=== PATIENT | male | born 1970 | race Caucasian/White ===

== ENCOUNTER 2020-08-22 07:22 | Inpatient (IN) ==
[2020-08-22] MEDS ORDERED: SODIUM CHLORIDE 0.9% 1000ML 1,000 ML IV STA (07:46)
[2020-08-22] MEDS ORDERED: ACETAMINOPHEN 500 MG TAB PO STA (07:46)
--- NOTE | 2020-08-22 08:17 | Emergency Department Note ---
Impression & Plan Pneumonia due to COVID-19 virus, Hypoxia ED Provider Note NAME: ALEYDA ARRIAGA AGE: 49 SEX: M : 1970 ARRIVES VIA: Walk-In INFORMANT: Patient, ED PROVIDER(S): Norberto Nguyen DO CHIEF COMPLAINT: Fever HPI: The patient is a 49-year-old male who presented to the emergency department for an evaluation of fever and cough. The patient was experiencing Covid-like symptoms since August 13. He was tested this week in an outside facility and was positive for COVID-19. His symptoms continue to worsen. The patient has been noticing chest pain as well as cough. He has had intermittent episodes of fever for which he has been taking [id number] medication for. He has been trying to eat and drink as much as possible but because of his loss of taste he is not hungry and has had decreased p.o. intake. He does have lower extremity swelling which is not new for him. He denies any having any abdominal pain nausea vomiting or diarrhea. He states his symptoms continue to worsen so he presented to the emergency department today for further evaluation. The patient did not take any medication for fever this morning. The patient states he has worsening symptoms with any ambulation. The patient also has shortness of breath when he lays flat. ROS: See above HPI for pertinent positives & negatives. A total of 10 systems reviewed and were otherwise negative. PAST MEDICAL HISTORY: See Below PAST SURGICAL HISTORY: See Below FAMILY HISTORY: See Below SOCIAL HISTORY: See Below HOME MEDICATIONS: See Below ALLERGIES: See Below VITALS: See Below PHYSICAL EXAMINATION: GENERAL: Patient is awake alert in no acute distress patient is resting comfortably and showing no signs of anxiety EYES: The conjunctivae are clear. The pupils are round and reactive. EARS, NOSE, MOUTH AND THROAT: The nose is without any evidence of any deformity. NECK: The neck is nontender and supple. RESPIRATORY: Diminished breath sounds are noted throughout. There were rales at the right base. There is no tachypnea or conversational dyspnea. CARDIOVASCULAR: Regular rate and rhythm noted there no murmurs rubs or gallops normal S1 normal S2. GASTROINTESTINAL: The abdomen is soft. Abdomen is nontender. MUSCULOSKELETAL/EXTREMITIES: There is no evidence of gross deformity full range of motion is noted in the hips and shoulders. SKIN: Bilateral pedal edema was noted. Left greater than right. NEUROLOGIC: Patient is awake alert and oriented x3 strength is symmetric patellar reflexes are 2+ bilaterally MEDICAL DECISION MAKING: The patient is a 49-year-old male who presented to the emergency department for an evaluation of difficulty breathing. The patient was recently diagnosed with COVID-19. He had many the symptoms of COVID-19. He was tested and found out he was positive recently. He is approximately 9 days into his symptoms. The patient started having worsening symptoms over the last 24 hours. He presented to the emergency department for evaluation of worsening breathing. The patient's history and physical exam appear to be consistent with significant COVID-19. His radiographic studies appear to be consistent with pneumonia. He was hypoxic with any exertion. Given the patient's radiographic findings he was given a dose of Decadron in the emergency department. He was reevaluated multiple times. I discussed the patient's laboratory and radiographic studies with him. I also discussed his case with the [facility]-call [facility] They have agreed to evaluate the patient in the emergency department for further management and disposition. Triage Nursing notes reviewed. Prior medical records reviewed Vital Signs: reviewed and remarkable for elevated blood pressure and hypoxia. Differential diagnosis: Viral syndrome, otitis, pharyngitis, pneumonia, influenza, meningitis, urinary tract infection, sepsis, bacteremia, as well as other pathologies. ER treatment provided: See below Diagnostics interpreted by me: ECG: EKG was obtained in the emergency department. My interpretation is normal sinus rhythm at 88 bpm. There was no ectopy. There is no acute ST segment abnormalities noted. No previous tracing was available for comparison. Cardiac Monitoring: An order was placed for continuous cardiac monitoring. The monitor shows a rate of 85 bpm with sinus rhythm. Laboratory studies: As stated above and show below. Imaging studies: See below Consultation(s): [id number]: I discussed this case with Dr. Yu who is on-call for the [facility]. She will evaluate the patient in the emergency department. Past Med/Surg History Medical History Anxiety Edema GERD (gastroesophageal reflux disease) Hyperlipidemia Social History Smoking Status: Never smoker Hx Alcohol Use: No Hx Substance Use: No Preferred Language: [place] Communication Ability: Effective Lead Engineer Required: No Beliefs That Will Affect Care: None Current Living Situation: Family Other Information That Helps Us Care for You: No Feels Safe at Home: Yes Safety Concerns: Feels Safe At This Time Assistive Devices: None Allergies Allergies Allergy/AdvReac Type Severity Reaction Status Date / Time No Known Allergies Allergy Unknown Verified 08/22/20 08:54 Home Meds Home Medications Medication Instructions Recorded Confirmed atorvastatin 20 mg PO QAM 04/12/20 08/22/20 citalopram 40 mg PO QAM 04/12/20 08/22/20 furosemide 20 mg PO QAM 04/12/20 08/22/20 lisinopril 10 mg PO QAM 04/12/20 08/22/20 omeprazole 20 mg PO QAM 04/12/20 08/22/20 potassium chloride 10 meq PO BID 04/12/20 08/22/20 finasteride 5 mg PO DAILY 08/22/20 08/22/20 Results & Data (ED) Vital Signs Vital Signs - 24 hr 08/22/20 07:27 08/22/20 07:52 08/22/20 08:27 Temperature 38.0 C H Temperature Source Temporal Artery Scan Pulse Rate 106 H 88 89 Pulse Rate from SpO2 Sensor 89 Pulse Rhythm Regular Respiratory Rate 18 23 26 H Respiratory Effort / Characteristics Non-Labored Spontaneous Respiratory Depth Normal Respiratory Pattern Regular Blood Pressure 129/83 155/87 H Blood Pressure Mean 98 109 Blood Pressure Position Sitting Pulse Oximetry 97 93 88 L Oxygen Delivery Method Room Air Room Air Sepsis Recent Fever Within 48 Hours No Sepsis New/Unexplained Change in Mental Status No Sepsis Action Taken by Nursing No Action Required 08/22/20 08:30 08/22/20 09:00 08/22/20 09:30 Temperature 39.6 C H Temperature Source Pulse Rate 96 H 81 82 Pulse Rate from SpO2 Sensor 97 H 81 82 Pulse Rhythm Respiratory Rate 16 28 H 18 Respiratory Effort / Characteristics Respiratory Depth Respiratory Pattern Blood Pressure 161/84 H 153/87 H 158/91 H Blood Pressure Mean 109 109 113 Blood Pressure Position Pulse Oximetry 93 90 94 Oxygen Delivery Method Sepsis Recent Fever Within 48 Hours Sepsis New/Unexplained Change in Mental Status Sepsis Action Taken by Intermediate Medications Current Medication List: was personally reviewed by me Laboratory Data Attestation: I reviewed the patient's lab results. Result diagrams: 08/22/20 08:18 08/22/20 08:23 Lab Results 08/22/20 08/22/20 08/22/20 Range/Units 08:00 08:00 08:18 WBC 3.99 L (4.8-10.8) K/uL RBC 5.07 (4.7-6.1) M/uL Hgb 14.7 (14.0-18.0) g/dL Hct 41.9 L (42-52) % MCV 82.6 (80-100) fL MCH 29.0 (25-34) pg MCHC 35.1 (32-36) g/dL RDW Std Deviation 40.0 (36.4-46.3) fL RDW Coeff of John 13.3 (11.5-14.5) % Plt Count 176 (130-400) K/uL MPV 9.8 (7.4-10.4) fL Immature Gran % (Auto) 0.3 % Neut % (Auto) 75.9 % Lymph % (Auto) 12.3 % Har[place]on % (Auto) 11.5 % Eos % (Auto) 0.0 % Baso % (Auto) 0.0 % Neut # (Auto) 3.03 (1.4-6.5) K/uL Lymph # (Auto) 0.49 L (1.2-3.4) K/uL Haralson # (Auto) 0.46 (0.11-0.59) K/uL Eos # (Auto) 0.00 (0-0.5) K/uL Baso # (Auto) 0.00 (0-0.2) K/uL Immature Gran # (Auto) 0.01 (0.00-0.02) K/uL ESR (0-20) mm/hr PT (9.0-12.0) Seconds INR (0.9-1.1) APTT (21.0-31.0) Seconds PTT Ratio Sodium (136-145) mmol/L Potassium (3.5-5.1) mmol/L Chloride (98-107) mmol/L Carbon Dioxide (21-32) mmol/L Anion Gap (3-11) BUN (7-18) mg/dl Creatinine (0.6-1.4) mg/dl Est Cr Clr Drug Dosing ml/min Est GFR ( Amer) Est GFR (Non-Af Amer) BUN/Creatinine Ratio (10-20) Glucose (70-99) mg/dl Calcium (8.5-10.1) mg/dl Phosphorus (2.5-4.9) mg/dl Magnesium (1.8-2.4) mg/dl Total Bilirubin (0.2-1) mg/dl AST (15-37) U/L ALT (12-78) U/L Alkaline Phosphatase (45-117) U/L Troponin I (0-0.045) ng/ml Total Protein (6.4-8.2) gm/dl Albumin (3.4-5.0) gm/dl Globulin (2.5-4.0) gm/dl Albumin/Globulin Ratio (0.9-2) Procalcitonin (0-0.5) ng/ml COVID-19 Eval Order [facility]Rsv at [facility] SARS-CoV-2 (PCR) POSITIVE A* (Negative) Influenza Type A (PCR) Negative (Neg) Influenza Type B (PCR) Negative (Neg) RSV (RT-PCR) Negative (Neg) 08/22/20 08/22/20 08/22/20 Range/Units 08:18 08:18 08:18 WBC (4.8-10.8) K/uL RBC (4.7-6.1) M/uL Hgb (14.0-18.0) g/dL Hct (42-52) % MCV (80-100) fL MCH (25-34) pg MCHC (32-36) g/dL RDW Std Deviation (36.4-46.3) fL RDW Coeff of John (11.5-14.5) % Plt Count (130-400) K/uL MPV (7.4-10.4) fL Immature Gran % (Auto) % Neut % (Auto) % Lymph % (Auto) % [place] % (Auto) % Eos % (Auto) % Baso % (Auto) % Neut # (Auto) (1.4-6.5) K/uL Lymph # (Auto) (1.2-3.4) K/uL [place] # (Auto) (0.11-0.59) K/uL Eos # (Auto) (0-0.5) K/uL Baso # (Auto) (0-0.2) K/uL Immature Gran # (Auto) (0.00-0.02) K/uL ESR 29 H (0-20) mm/hr PT 10.3 (9.0-12.0) Seconds INR 1.0 (0.9-1.1) APTT 23.9 (21.0-31.0) Seconds PTT Ratio 0.9 Sodium (136-145) mmol/L Potassium (3.5-5.1) mmol/L Chloride (98-107) mmol/L Carbon Dioxide (21-32) mmol/L Anion Gap (3-11) BUN (7-18) mg/dl Creatinine (0.6-1.4) mg/dl Est Cr Clr Drug Dosing ml/min Est GFR ( Amer) Est GFR (Non-Af Amer) BUN/Creatinine Ratio (10-20) Glucose (70-99) mg/dl Calcium (8.5-10.1) mg/dl Phosphorus (2.5-4.9) mg/dl Magnesium (1.8-2.4) mg/dl Total Bilirubin (0.2-1) mg/dl AST (15-37) U/L ALT (12-78) U/L Alkaline Phosphatase (45-117) U/L Troponin I (0-0.045) ng/ml Total Protein (6.4-8.2) gm/dl Albumin (3.4-5.0) gm/dl Globulin (2.5-4.0) gm/dl Albumin/Globulin Ratio (0.9-2) Procalcitonin < 0.05 (0-0.5) ng/ml COVID-19 Eval Order SARS-CoV-2 (PCR) (Negative) Influenza Type A (PCR) (Neg) Influenza Type B (PCR) (Neg) RSV (RT-PCR) (Neg) 08/22/20 08/22/20 Range/Units 08:23 08:23 WBC (4.8-10.8) K/uL RBC (4.7-6.1) M/uL Hgb (14.0-18.0) g/dL Hct (42-52) % MCV (80-100) fL MCH (25-34) pg MCHC (32-36) g/dL RDW Std Deviation (36.4-46.3) fL RDW Coeff of John (11.5-14.5) % Plt Count (130-400) K/uL MPV (7.4-10.4) fL Immature Gran % (Auto) % Neut % (Auto) % Lymph % (Auto) % [place] % (Auto) % Eos % (Auto) % Baso % (Auto) % Neut # (Auto) (1.4-6.5) K/uL Lymph # (Auto) (1.2-3.4) K/uL [place] # (Auto) (0.11-0.59) K/uL Eos # (Auto) (0-0.5) K/uL Baso # (Auto) (0-0.2) K/uL Immature Gran # (Auto) (0.00-0.02) K/uL ESR (0-20) mm/hr PT (9.0-12.0) Seconds INR (0.9-1.1) APTT (21.0-31.0) Seconds PTT Ratio Sodium 135 L (136-145) mmol/L Potassium 3.4 L (3.5-5.1) mmol/L Chloride 102 (98-107) mmol/L Carbon Dioxide 26 (21-32) mmol/L Anion Gap 7.0 (3-11) BUN 14 (7-18) mg/dl Creatinine 1.17 (0.6-1.4) mg/dl Est Cr Clr Drug Dosing 97.6 ml/min Est GFR ( Amer) 83.8 Est GFR (Non-Af Amer) 72.3 BUN/Creatinine Ratio 11.8 (10-20) Glucose 90 (70-99) mg/dl Calcium 8.9 (8.5-10.1) mg/dl Phosphorus 2.0 L (2.5-4.9) mg/dl Magnesium 2.3 (1.8-2.4) mg/dl Total Bilirubin 0.7 (0.2-1) mg/dl AST 38 H (15-37) U/L ALT 32 (12-78) U/L Alkaline Phosphatase 45 (45-117) U/L Troponin I < 0.015 (0-0.045) ng/ml Total Protein 7.9 (6.4-8.2) gm/dl Albumin 3.4 (3.4-5.0) gm/dl Globulin 4.4 H (2.5-4.0) gm/dl Albumin/Globulin Ratio 0.8 L (0.9-2) Procalcitonin (0-0.5) ng/ml COVID-19 Eval Order SARS-CoV-2 (PCR) (Negative) Influenza Type A (PCR) (Neg) Influenza Type B (PCR) (Neg) RSV (RT-PCR) (Neg) Administered Medications Enoxaparin Sodium (Enoxaparin Inj 40 Mg/0.4 Ml Syr) 40 mg SQ Q12 LINDSEY Stop: 09/21/20 10:44 Last Admin: 08/22/20 12:26 Dose: 40 mg Documented by: [id number] Pantoprazole Sodium (Pantoprazole 40 Mg Tab) 40 mg PO QAM LINDSEY Stop: 09/21/20 09:44 Last Admin: 08/22/20 12:26 Dose: 40 mg Documented by: [id number] Sodium Chloride (Sodium Chloride 0.9% 10ml Flush) 30 ml IV Q24H LINDSEY Stop: 08/26/20 13:01 Last Admin: 08/22/20 14:49 Dose: 30 ml Documented by: [id number] Discontinued Medications Acetaminophen (Acetaminophen 500 Mg Tab) 1,000 mg PO ONE STA Stop: 08/22/20 07:47 Last Admin: 08/22/20 08:15 Dose: 1,000 mg Documented by: [id number] Acetaminophen (Acetaminophen 325 Mg Tab) 650 mg PO NOW STA Stop: 08/22/20 09:40 Last Admin: 08/22/20 12:36 Dose: Not Given Documented by: [id number] Dexamethasone Sodium Phosphate (DexamethasonePf 10 Mg/Ml Vial) 10 mg IV NOW ONE Stop: 08/22/20 08:41 Last Admin: 08/22/20 10:02 Dose: 10 mg Documented by: [id number] Sodium Chloride (Nss 1000ml) 1,000 mls @ 999 mls/hr IV .Q1H1M STA Stop: 08/22/20 08:46 Last Infusion: 08/22/20 10:03 Dose: 0 mls/hr Documented by: [id number] Admin: 08/22/20 08:15 Dose: 999 mls/hr Documented by: [id number] Remdesivir 200 mg/ Sodium (Chloride) 250 mls @ 125 mls/hr IV TODAY@1100 ONE; Protocol Stop: 08/22/20 12:59 Last Infusion: 08/22/20 14:26 Dose: 0 mls/hr Documented by: [id number] Admin: 08/22/20 12:26 Dose: 125 mls/hr Documented by: [id number] Potassium Chloride (Potassium Chloride Crtab 20 Meq Tabcr) 40 meq PO 1300 ONE Stop: 08/22/20 13:01 Last Admin: 08/22/20 12:42 Dose: 40 meq Documented by: [id number] Imaging Data Radiologist's Impression: Chest X-Ray 08/22/20 07:46 XR chest 1V portable CLINICAL HISTORY: Fever COMPARISON STUDY: No previous studies for comparison. FINDINGS: The heart is borderline enlarged. There is aortic tortuosity/ectasia. There are multifocal bilateral airspace opacity suspicious for a multifocal p neumonia. Clinical and radiographic follow-up is recommended.[ IMPRESSION: Multifocal airspace opacity suspicious for a multifocal pneumonia. ACT 112: Negative or not required by law. Electronically signed by: Buck Magana M.D. 08/22/2020 8:46 AM Discharge Plan Visit Data Chief Complaint: Illness Stated Complaint: +COVID,BODY ACHE,NAUSEA,DEHY, ED Provider: Norberto Nguyen Discharge Problem: Pneumonia due to COVID-19 virus, Hypoxia Patient Disposition: Admitted As Inpatient Condition: Good Discharge Instructions Interventions: ED Discharge Assessment Last Done: 08/22/20 10:20
[2020-08-22 08:35] LABS: Hematocrit (blood only) 41.9 % (42-52); Hemoglobin 14.7 g/dL (14.0-18.0); Immature Granulocytes # (auto) 0.01 K/uL (0.00-0.02); Immature Granulocytes % (auto) 0.3 %; Lymphocytes # (auto) 0.49 K/uL (1.2-3.4); Lymphocytes % (auto) 12.3 %; Mean Corpuscular Hgb Conc 35.1 g/dL (32-36); Mean Corpuscular Volume 82.6 fL (80-100); Mean Platelet Volume 9.8 fL (7.4-10.4); Monocytes # (auto) 0.46 K/uL (0.11-0.59); Monocytes % (auto) 11.5 %; Neutrophils # (auto) 3.03 K/uL (1.4-6.5); Neutrophils % (auto) 75.9 %; Platelet Count 176 K/uL (130-400); RDW Coefficient of Variation 13.3 % (11.5-14.5); Red Blood Count 5.07 M/uL (4.7-6.1); White Blood Count 3.99 K/uL (4.8-10.8)
[2020-08-22] MEDS ORDERED: dexAMETHasone**PF** 10 MG/ML VIAL IV ONE (08:40)
[2020-08-22 08:45] LABS: Partial Thromboplastin Ratio 0.9; Partial Thromboplastin Time 23.9 Seconds (21.0-31.0); Prothrombin Time 10.3 Seconds (9.0-12.0)
--- NOTE | 2020-08-22 08:47 | XRay Report ---
XR chest 1V portable CLINICAL HISTORY: Fever COMPARISON STUDY: No previous studies for comparison. FINDINGS: The heart is borderline enlarged. There is aortic tortuosity/ectasia. There are multifocal bilateral airspace opacity suspicious for a multifocal pneumonia. Clinical and radiographic follow-up is recommended.[ IMPRESSION: Multifocal airspace opacity suspicious for a multifocal pneumonia. ACT 112: Negative or not required by law. Electronically signed by: Buck Magana M.D. 08/22/2020 8:46 AM
[2020-08-22 09:00] LABS: Influenza A virus by PCR Negative (Neg); Influenza B virus by PCR Negative (Neg); RSV by PCR Negative (Neg)
[2020-08-22 09:02] LABS: Albumin Level 3.4 gm/dl (3.4-5.0); BUN Creatinine Ratio 11.8 (10-20); Blood Urea Nitrogen 14 mg/dl (7-18); Calcium 8.9 mg/dl (8.5-10.1); Carbon Dioxide 26 mmol/L (21-32); Chloride 102 mmol/L (98-107); Creatinine Clr Calc Pharmacy 97.6 ml/min; Est GFR (African American) 83.8; Est GFR (Non-African American) 72.3; Glucose 90 mg/dl (70-99); Potassium 3.4 mmol/L (3.5-5.1); Sodium 135 mmol/L (136-145)
[2020-08-22 09:07] LABS: Alanine Aminotransferase 32 U/L (12-78); Albumin Globulin Ratio 0.8 (0.9-2); Alkaline Phosphatase 45 U/L (45-117); Aspartate Aminotransferase 38 U/L (15-37); Bilirubin,Total 0.7 mg/dl (0.2-1); Globulin 4.4 gm/dl (2.5-4.0); Total Protein 7.9 gm/dl (6.4-8.2); Troponin I < 0.015 ng/ml (0-0.045)
[2020-08-22 09:15] LABS: SARS CoV2 RNA(COVID-19) InHosp POSITIVE (Negative)
[2020-08-22] MEDS ORDERED: POTASSIUM CHLORIDE CRTAB 20 MEQ TABCR PO STA (09:38)
[2020-08-22] MEDS ORDERED: POLYETHYLENE (MIRALAX) 17 GM PACK PO PRN (09:39)
[2020-08-22] MEDS ORDERED: ACETAMINOPHEN 325 MG TAB PO STA (09:39)
--- NOTE | 2020-08-22 09:54 | History & Physical Report ---
Date of Service August 22, 2020 Assessment & Plan (1) Acute respiratory failure with hypoxia: (2) Pneumonia due to COVID-19 virus: Patient presents with shortness of breath, cough, fevers Conversational dyspnea and tachypnea, desaturated to 88% in the ED Febrile in ED Chest x-ray consistent with multifocal, likely viral pneumonia ESR elevated at 29 Patient received Tylenol and Decadron in the ED We will continue Decadron for up to 10 days We will start remdesivir, will continue to monitor AST and ALT Guaifenesin, encourage in incentive spirometer, flutter valve DuoNebs Monitor inflammatory markers Will obtain procalcitonin to evaluate for need for antibiotics Patient has lower extremity edema, seems to be chronic however given the COVID- 19 status, there is a higher risk of possible clotting, will obtain lower extremity Dopplers (3) Hypokalemia: -Patient has a history of hypokalemia, at home is on supplement 10 mEq twice a day -On admission potassium 3.4 -Replete and monitor (4) Hypertension: - Continue home lisinopril and furosemide - Monitor BP (5) GERD (gastroesophageal reflux disease): -PPI (6) Hyperlipidemia: -We will hold simvastatin while patient on remdesivir DVT prophylaxis: Lovenox Dispo: Med telemetry Code full History of Present Illness Chief Complaint: Shortness of breath, COVID-19 positive Primary Care Provider: Eleazar Baptiste MD Mr. Watters is a 49-year-old male, with history of hypertension, hyperlipidemia, GERD, who presents with shortness of breath, cough, fevers of several days. He was also positive for COVID-19 in an outpatient facility. He presents in ED today because of worsening symptoms. He also reports loss of taste and smell, and poor appetite. Did not eat since Sunday evening. Was having conversational dyspnea and desaturated in the ED into 88%. Was also found febrile in the emergency room, and received Tylenol. Denies any abdominal pain, vomiting, diarrhea. In the ED COVID-19 PCR was confirmed, ESR elevated at 29. Chest x-ray significant for multifocal airspace opacities suspicious for multifocal pneumonia. Patient also reports having lower extremity edema, denies any pain, left lower e xtremity is slightly bigger edema than the right one, and patient reports that is not unusual for him. Currently he is actually saturating on room air, feels better after getting Decadron in the ED. Allergies Allergy/AdvReac Type Severity Reaction Status Date / Time No Known Allergies Allergy Unknown Verified 08/22/20 08:54 Home Medications Medication Instructions Recorded Confirmed Type atorvastatin 20 mg PO QAM 04/12/20 08/22/20 History citalopram 40 mg PO QAM 04/12/20 08/22/20 History furosemide 20 mg PO QAM 04/12/20 08/22/20 History lisinopril 10 mg PO QAM 04/12/20 08/22/20 History omeprazole 20 mg PO QAM 04/12/20 08/22/20 History potassium chloride 10 meq PO BID 04/12/20 08/22/20 History finasteride 5 mg PO DAILY 08/22/20 08/22/20 History Past Med/Surg History Medical History (Updated 08/22/20 @ 16:36 by Austin Yu MD) Anxiety Edema GERD (gastroesophageal reflux disease) Hyperlipidemia Hyperlipidemia Hypertension Obesity (BMI 30.0-34.9) Social History Smoking Status: Never smoker Hx Alcohol Use: No Hx Substance Use: No Preferred Language: Upper Sorbian Communication Ability: Effective Society Editor Required: No Beliefs That Will Affect Care: None Current Living Situation: Family Other Information That Helps Us Care for You: No Feels Safe at Home: Yes Safety Concerns: Feels Safe At This Time Assistive Devices: None Review of Systems Review of Systems: All systems reviewed & are unremarkable except as noted in HPI & below Constitutional: + fever Eyes: no problem reported Ear, Nose, Mouth, Throat: no problem reported Respiratory: + cough and + dyspnea Cardiovascular: no chest pain and no palpitations Gastrointestinal: no abdominal pain, no nausea and no vomiting Poor appetite Genitourinary: no problem reported Musculoskeletal: no problem reported Integumentary: no problem reported Neurologic: no problem reported Psychiatric: no problem reported Endocrine: no problem reported Hematologic / Lymphatic: no problem reported Allergy / Immunological: no problem reported Physical Exam Constitutional: WD/WN, vitals as above no acute distress Eyes: PERRL, conjunctivae normal, anicteric sclerae ENMT: external ear and nose normal, oropharynx normal Neck: trachea midline, no thyromegaly normal visual inspection Respiratory: normal respiratory effort, lungs clear to auscultation Auscultation: + rhonchi (mild); no crackles and no wheezes Cardiovascular: RRR, no murmur, no edema Chest (Breasts): Chest: normal inspection of chest Gastrointestinal (Abdomen): Inspection/Auscultation: abdomen normal to inspection Musculoskeletal: Head/Neck/Chest: normocephalic and head atraumatic Skin: no rashes, warm and dry Neurologic: PERRL, EOMI, accommodation nl, no face palsy, no dysarthria moves all extremities Psychiatric: A+Ox3, euthymic affect Genitourinary: no CVA tenderness Lymphatic: + lymphedema (LE b/l, L>R) Results & Data Results & Data ([facility]) Vital Signs (Past 12 Hours) Vital Signs Temp Pulse Resp BP Pulse Ox 08/22/20 09:30 82 18 158/91 H 94 08/22/20 09:00 81 28 H 153/87 H 90 08/22/20 08:30 96 H 16 161/84 H 93 08/22/20 08:27 89 26 H 155/87 H 88 L 08/22/20 07:52 88 23 93 08/22/20 07:27 38.0 C H 106 H 18 129/83 97 Laboratory Results 08/22/20 08/22/20 08/22/20 Range/Units 08:23 08:18 08:18 WBC (4.8-10.8) K/uL RBC (4.7-6.1) M/uL Hgb (14.0-18.0) g/dL Hct (42-52) % MCV (80-100) fL MCH (25-34) pg MCHC (32-36) g/dL RDW Std Deviation (36.4-46.3) fL RDW Coeff of John (11.5-14.5) % Plt Count (130-400) K/uL MPV (7.4-10.4) fL Immature Gran % (Auto) % Neut % (Auto) % Lymph % (Auto) % [place] % (Auto) % Eos % (Auto) % Baso % (Auto) % Neut # (Auto) (1.4-6.5) K/uL Lymph # (Auto) (1.2-3.4) K/uL [place] # (Auto) (0.11-0.59) K/uL Eos # (Auto) (0-0.5) K/uL Baso # (Auto) (0-0.2) K/uL Immature Gran # (Auto) (0.00-0.02) K/uL ESR (0-20) mm/hr PT 10.3 (9.0-12.0) Seconds INR 1.0 (0.9-1.1) APTT 23.9 (21.0-31.0) Seconds PTT Ratio 0.9 Sodium 135 L (136-145) mmol/L Potassium 3.4 L (3.5-5.1) mmol/L Chloride 102 (98-107) mmol/L Carbon Dioxide 26 (21-32) mmol/L Anion Gap 7.0 (3-11) BUN 14 (7-18) mg/dl Creatinine 1.17 (0.6-1.4) mg/dl Est Cr Clr Drug Dosing 97.6 ml/min Est GFR ( Amer) 83.8 Est GFR (Non-Af Amer) 72.3 BUN/Creatinine Ratio 11.8 (10-20) Glucose 90 (70-99) mg/dl Calcium 8.9 (8.5-10.1) mg/dl Total Bilirubin 0.7 (0.2-1) mg/dl AST 38 H (15-37) U/L ALT 32 (12-78) U/L Alkaline Phosphatase 45 (45-117) U/L Troponin I < 0.015 (0-0.045) ng/ml Total Protein 7.9 (6.4-8.2) gm/dl Albumin 3.4 (3.4-5.0) gm/dl Globulin 4.4 H (2.5-4.0) gm/dl Albumin/Globulin Ratio 0.8 L (0.9-2) Procalcitonin < 0.05 (0-0.5) ng/ml COVID-19 Eval Order SARS-CoV-2 (PCR) (Negative) Influenza Type A (PCR) (Neg) Influenza Type B (PCR) (Neg) RSV (RT-PCR) (Neg) 08/22/20 08/22/20 08/22/20 Range/Units 08:18 08:18 08:00 WBC 3.99 L (4.8-10.8) K/uL RBC 5.07 (4.7-6.1) M/uL Hgb 14.7 (14.0-18.0) g/dL Hct 41.9 L (42-52) % MCV 82.6 (80-100) fL MCH 29.0 (25-34) pg MCHC 35.1 (32-36) g/dL RDW Std Deviation 40.0 (36.4-46.3) fL RDW Coeff of John 13.3 (11.5-14.5) % Plt Count 176 (130-400) K/uL MPV 9.8 (7.4-10.4) fL Immature Gran % (Auto) 0.3 % Neut % (Auto) 75.9 % Lymph % (Auto) 12.3 % [place] % (Auto) 11.5 % Eos % (Auto) 0.0 % Baso % (Auto) 0.0 % Neut # (Auto) 3.03 (1.4-6.5) K/uL Lymph # (Auto) 0.49 L (1.2-3.4) K/uL [place] # (Auto) 0.46 (0.11-0.59) K/uL Eos # (Auto) 0.00 (0-0.5) K/uL Baso # (Auto) 0.00 (0-0.2) K/uL Immature Gran # (Auto) 0.01 (0.00-0.02) K/uL ESR 29 H (0-20) mm/hr PT (9.0-12.0) Seconds INR (0.9-1.1) APTT (21.0-31.0) Seconds PTT Ratio Sodium (136-145) mmol/L Potassium (3.5-5.1) mmol/L Chloride (98-107) mmol/L Carbon Dioxide (21-32) mmol/L Anion Gap (3-11) BUN (7-18) mg/dl Creatinine (0.6-1.4) mg/dl Est Cr Clr Drug Dosing ml/min Est GFR ( Amer) Est GFR (Non-Af Amer) BUN/Creatinine Ratio (10-20) Glucose (70-99) mg/dl Calcium (8.5-10.1) mg/dl Total Bilirubin (0.2-1) mg/dl AST (15-37) U/L ALT (12-78) U/L Alkaline Phosphatase (45-117) U/L Troponin I (0-0.045) ng/ml Total Protein (6.4-8.2) gm/dl Albumin (3.4-5.0) gm/dl Globulin (2.5-4.0) gm/dl Albumin/Globulin Ratio (0.9-2) Procalcitonin (0-0.5) ng/ml COVID-19 Eval Order SARS-CoV-2 (PCR) POSITIVE A* (Negative) Influenza Type A (PCR) Negative (Neg) Influenza Type B (PCR) Negative (Neg) RSV (RT-PCR) Negative (Neg) 08/22/20 Range/Units 08:00 WBC (4.8-10.8) K/uL RBC (4.7-6.1) M/uL Hgb (14.0-18.0) g/dL Hct (42-52) % MCV (80-100) fL MCH (25-34) pg MCHC (32-36) g/dL RDW Std Deviation (36.4-46.3) fL RDW Coeff of John (11.5-14.5) % Plt Count (130-400) K/uL MPV (7.4-10.4) fL Immature Gran % (Auto) % Neut % (Auto) % Lymph % (Auto) % [place] % (Auto) % Eos % (Auto) % Baso % (Auto) % Neut # (Auto) (1.4-6.5) K/uL Lymph # (Auto) (1.2-3.4) K/uL [place] # (Auto) (0.11-0.59) K/uL Eos # (Auto) (0-0.5) K/uL Baso # (Auto) (0-0.2) K/uL Immature Gran # (Auto) (0.00-0.02) K/uL ESR (0-20) mm/hr PT (9.0-12.0) Seconds INR (0.9-1.1) APTT (21.0-31.0) Seconds PTT Ratio Sodium (136-145) mmol/L Potassium (3.5-5.1) mmol/L Chloride (98-107) mmol/L Carbon Dioxide (21-32) mmol/L Anion Gap (3-11) BUN (7-18) mg/dl Creatinine (0.6-1.4) mg/dl Est Cr Clr Drug Dosing ml/min Est GFR ( Amer) Est GFR (Non-Af Amer) BUN/Creatinine Ratio (10-20) Glucose (70-99) mg/dl Calcium (8.5-10.1) mg/dl Total Bilirubin (0.2-1) mg/dl AST (15-37) U/L ALT (12-78) U/L Alkaline Phosphatase (45-117) U/L Troponin I (0-0.045) ng/ml Total Protein (6.4-8.2) gm/dl Albumin (3.4-5.0) gm/dl Globulin (2.5-4.0) gm/dl Albumin/Globulin Ratio (0.9-2) Procalcitonin (0-0.5) ng/ml COVID-19 Eval Order CovFluRsv at [facility] SARS-CoV-2 (PCR) (Negative) Influenza Type A (PCR) (Neg) Influenza Type B (PCR) (Neg) RSV (RT-PCR) (Neg) Diagnostic Findings CXR 08/22/20 FINDINGS: The heart is borderline enlarged. There is aortic tortuosity/ectasia. There are multifocal bilateral airspace opacity suspicious for a multifocal pneumonia. Clinical and radiographic follow-up is recommended.[ IMPRESSION: Multifocal airspace opacity suspicious for a multifocal pneumonia. Medications Administered Current Inpatient Medications Acetaminophen (Acetaminophen 325 Mg Tab) 650 mg PO Q4H PRN PRN Reason: Pain or Fever Stop: 09/21/20 09:38 Enoxaparin Sodium (Enoxaparin Inj 40 Mg/0.4 Ml Syr) 40 mg SQ Q12H [facility] Stop: 09/21/20 09:44 Dexamethasone 6 mg/ Syringe 1.5 mls @ 1 mls/min IV Q24H [facility] Stop: 09/22/20 08:59 Remdesivir 200 mg/ Sodium (Chloride) 250 mls @ 125 mls/hr IV ONE STA; Protocol Stop: 08/22/20 11:46 Remdesivir 100 mg/ Sodium (Chloride) 250 mls @ 250 mls/hr IV Q24H [facility]; Protocol Stop: 08/26/20 10:59 Pantoprazole Sodium (Pantoprazole 40 Mg Tab) 40 mg PO QAM [facility] Stop: 09/21/20 09:44 Polyethylene Glycol (Polyethylene (Miralax) 17 Gm Pack) 17 gm PO DAILY PRN PRN Reason: Constipation Stop: 09/21/20 09:38 Potassium Chloride (Potassium Chloride Crtab 20 Meq Tabcr) 40 meq PO NOW STA Stop: 08/22/20 09:39 Sodium Chloride (Sodium Chloride 0.9% 10ml Flush) 30 ml IV Q24H [facility] Stop: 08/26/20 10:01
[2020-08-22 10:15] LABS: Magnesium 2.3 mg/dl (1.8-2.4)
[2020-08-22] MEDS ORDERED: REMDESIVIR 200 MG in SODIUM CHLORIDE 0.9% 210 ML IV ONE (11:00)
[2020-08-22] MEDS: ENOXAPARIN INJ 40 MG/0.4 ML SYR SQ SCH ×2 (12:26→20:46)
[2020-08-22] MEDS: PANTOprazole 40 MG TAB PO SCH (12:26)
[2020-08-22] MEDS ORDERED: POTASSIUM CHLORIDE CRTAB 20 MEQ TABCR PO ONE (13:00)
--- NOTE | 2020-08-22 13:51 | Ultrasound Report ---
BILATERAL LOWER EXTREMITY VENOUS DOPPLER HISTORY: Acute pain and swelling of the lower legs r/o DVT COMPARISON STUDY: None. FINDINGS: There is normal compressibility, flow, and augmentation within the bilateral lower extremit y deep venous systems. IMPRESSION: No DVT within the right or left lower extremity. ACT 112: Negative or not required by law. Electronically signed by: Kenn Lazaro M.D. 08/22/2020 1:50 PM
[2020-08-22] MEDS ORDERED: POTASSIUM PHOS 3 MMOL/1 ML INFUSION IV STA (14:21)
[2020-08-22] MEDS: SODIUM CHLORIDE 0.9% 10ML FLUSH IV SCH (14:49)
[2020-08-22] MEDS ORDERED: POTASSIUM PHOSPHATE 6 MMOL in SODIUM CHLORIDE 0.9% 250 ML IV ONE (15:00)
[2020-08-22] MEDS: ALBUT/IPRATROP 3MG/0.5MG NEB 3 ML VIAL NEB SCH ×2 (15:29→19:41)
[2020-08-22] MEDS: POT PHOSPHATE MONOBASIC W/ SOD TAB PO SCH ×2 (17:43→20:59)
[2020-08-22] MEDS: guaiFENesin 600 MG TABCR PO SCH (20:44)
[2020-08-23 07:06] LABS: Hematocrit (blood only) 39.9 % (42-52); Hemoglobin 13.8 g/dL (14.0-18.0); Mean Corpuscular Hgb Conc 34.6 g/dL (32-36); Mean Corpuscular Volume 83.8 fL (80-100); Mean Platelet Volume 9.5 fL (7.4-10.4); Platelet Count 188 K/uL (130-400); RDW Coefficient of Variation 13.4 % (11.5-14.5); RDW Standard Deviation 40.6 fL (36.4-46.3); Red Blood Count 4.76 M/uL (4.7-6.1); White Blood Count 5.13 K/uL (4.8-10.8)
[2020-08-23 07:22] LABS: BUN Creatinine Ratio 16.2 (10-20); Calcium 8.1 mg/dl (8.5-10.1); Creatinine Clr Calc Pharmacy 124.6 ml/min; Est GFR (Non-African American) 96.6; Magnesium 2.6 mg/dl (1.8-2.4)
[2020-08-23 07:24] LABS: Albumin Globulin Ratio 0.8 (0.9-2); Bilirubin,Total 0.5 mg/dl (0.2-1); C Reactive Protein 6.26 mg/dl (0-0.29); Phosphorus 3.3 mg/dl (2.5-4.9)
[2020-08-23] MEDS: ALBUT/IPRATROP 3MG/0.5MG NEB 3 ML VIAL NEB SCH (07:34)
[2020-08-23] MEDS ORDERED: ALBUT/IPRATROP 3MG/0.5MG NEB 3 ML VIAL NEB PRN (07:51)
[2020-08-23] MEDS: CITALOPRAM 40 MG TAB PO SCH (08:22)
[2020-08-23] MEDS: dexAMETHasone 6 MG in SYRINGE 0 ML IV SCH (08:23)
[2020-08-23] MEDS: FINASTERIDE 5 MG TAB PO SCH (08:23)
[2020-08-23] MEDS: POT PHOSPHATE MONOBASIC W/ SOD TAB PO SCH ×4 (08:23→19:59)
[2020-08-23] MEDS: PANTOprazole 40 MG TAB PO SCH (08:23)
[2020-08-23] MEDS: ENOXAPARIN INJ 40 MG/0.4 ML SYR SQ SCH ×2 (08:23→19:58)
[2020-08-23] MEDS: guaiFENesin 600 MG TABCR PO SCH ×2 (08:23→19:59)
[2020-08-23] MEDS: FUROSEMIDE 20 MG TAB PO SCH (08:23)
[2020-08-23] MEDS: lisinopril 10 MG TAB PO SCH (08:23)
[2020-08-23] MEDS: ALBUTEROL HFA 8 GM INHALER INH SCH ×3 (10:58→19:35)
[2020-08-23] MEDS: REMDESIVIR 100 MG in SODIUM CHLORIDE 0.9% 230 ML IV SCH (11:32)
--- NOTE | 2020-08-23 12:19 | Hospitalist Progress Note ---
Date of Service August 23, 2020 Assessment & Plan (1) Acute respiratory failure with hypoxia: (2) Pneumonia due to COVID-19 virus: Patient presents with shortness of breath, cough, fevers Conversational dyspnea and tachypnea, desaturated to 88% in the ED Febrile in ED Chest x-ray consistent with multifocal, likely viral pneumonia ESR elevated at 29 Patient received Tylenol and Decadron in the ED We will continue Decadron for up to 10 days We will start remdesivir, will continue to monitor AST and ALT Guaifenesin, encourage in incentive spirometer, flutter valve DuoNebs Monitor inflammatory markers procalcitonin - negative Patient has lower extremity edema, seems to be chronic however given the COVID- 19 status, there is a higher risk of possible clotting, will obtain lower extremity Dopplers Dopplers negative for DVT Clinically already patient is improved, breathing better, has now improved appetite, diarrhea resolved (3) Hypokalemia: -Patient has a history of hypokalemia, at home is on supplement 10 mEq twice a day -On admission potassium 3.4 -Replete and monitor (4) Hypertension: - Continue home lisinopril and furosemide - Monitor BP (5) GERD (gastroesophageal reflux disease): -PPI (6) Hyperlipidemia: -We will hold simvastatin while patient on remdesivir DVT prophylaxis: Lovenox Dispo: Med telemetry Code full Admission and Anticipated Discharge Date Admission Date: August 22, 2020 Subjective Patient seen in follow-up of hypoxia,COVID-19 pna Currently patient feels better, he is sitting up in the chair, in no acute distress Currently he is breathing on room air says that his appetite is now somewhat better as well Previously had very loose stools, no bowel movement today Was febrile yesterday on admission, in the morning, since admission afebrile Review of Systems Review of Systems: All systems reviewed & are unremarkable except as noted in HPI & below Constitutional: no fever and no chills Respiratory: + cough and + dyspnea (improved) Cardiovascular: no chest pain and no palpitations Gastrointestinal: no abdominal pain, no nausea and no vomiting Physical Exam Constitutional: WD/WN, vitals as above no acute distress Eyes: PERRL, conjunctivae normal, anicteric sclerae ENMT: external ear and nose normal, oropharynx normal Neck: trachea midline, no thyromegaly normal visual inspection Respiratory: normal respiratory effort, lungs clear to auscultation Auscultation: no crackles, no rhonchi and no wheezes Cardiovascular: RRR, no murmur, no edema Chest (Breasts): Chest: normal inspection of chest Gastrointestinal (Abdomen): Inspection/Auscultation: abdomen normal to inspection Musculoskeletal: Head/Neck/Chest: normocephalic and head atraumatic Skin: no rashes, warm and dry Neurologic: PERRL, EOMI, accommodation nl, no face palsy, no dysarthria moves all extremities Psychiatric: A+Ox3, euthymic affect Genitourinary: no CVA tenderness Lymphatic: + lymphedema (LE b/l, L>R) Results & Data Results & Data ([facility]) Vital Signs (Past 12 Hours) Vital Signs Temp Pulse Pulse Resp BP Pulse Ox Pulse Ox 08/23/20 11:34 37.2 C 76 20 132/81 91 08/23/20 10:58 73 23 91 08/23/20 09:40 92 08/23/20 08:00 61 08/23/20 07:45 37.0 C 71 22 145/91 H 91 08/23/20 07:34 68 17 93 08/23/20 04:45 37.0 C 63 16 139/81 94 Laboratory Results 08/23/20 08/23/20 08/23/20 Range/Units 06:28 06:28 06:28 WBC 5.13 (4.8-10.8) K/uL RBC 4.76 (4.7-6.1) M/uL Hgb 13.8 L (14.0-18.0) g/dL Hct 39.9 L (42-52) % MCV 83.8 (80-100) fL MCH 29.0 (25-34) pg MCHC 34.6 (32-36) g/dL RDW Std Deviation 40.6 (36.4-46.3) fL RDW Coeff of John 13.4 (11.5-14.5) % Plt Count 188 (130-400) K/uL MPV 9.5 (7.4-10.4) fL ESR 15 (0-20) mm/hr Sodium 139 (136-145) mmol/L Potassium 4.0 D (3.5-5.1) mmol/L Chloride 107 (98-107) mmol/L Carbon Dioxide 30 (21-32) mmol/L Anion Gap 2.0 L (3-11) BUN 15 (7-18) mg/dl Creatinine 0.92 (0.6-1.4) mg/dl Est Cr Clr Drug Dosing 124.6 ml/min Est GFR ( Amer) 112.0 Est GFR (Non-Af Amer) 96.6 BUN/Creatinine Ratio 16.2 (10-20) Glucose 130 H (70-99) mg/dl Calcium 8.1 L (8.5-10.1) mg/dl Phosphorus 3.3 D (2.5-4.9) mg/dl Magnesium 2.6 H (1.8-2.4) mg/dl Total Bilirubin 0.5 (0.2-1) mg/dl AST 30 (15-37) U/L ALT 31 (12-78) U/L Alkaline Phosphatase 37 L (45-117) U/L C-Reactive Protein 6.26 H (0-0.29) mg/dl Total Protein 7.0 (6.4-8.2) gm/dl Albumin 3.0 L (3.4-5.0) gm/dl Globulin 4.0 (2.5-4.0) gm/dl Albumin/Globulin Ratio 0.8 L (0.9-2) Medications Administered Current Inpatient Medications Acetaminophen (Acetaminophen 325 Mg Tab) 650 mg PO Q4H PRN PRN Reason: Pain or Fever Stop: 09/21/20 09:38 Albuterol (Albut/Ipratrop 3mg/0.5mg Neb 3 Ml Vial) 3 ml NEB Q4R PRN PRN Reason: Shortness Of Breath Or Wheezing Stop: 09/22/20 07:50 Albuterol (Albuterol Hfa 8 Gm Inhaler) 2 puffs INH QIDR [facility] Stop: 09/22/20 10:59 Last Admin: 08/23/20 10:58 Dose: 2 puffs Documented by: Citalopram Hydrobromide (Citalopram 40 Mg Tab) 40 mg PO QAM [facility] Stop: 09/22/20 08:59 Last Admin: 08/23/20 08:22 Dose: 40 mg Documented by: Enoxaparin Sodium (Enoxaparin Inj 40 Mg/0.4 Ml Syr) 40 mg SQ Q12 [facility] Stop: 09/21/20 10:44 Last Admin: 08/23/20 08:23 Dose: 40 mg Documented by: Finasteride (Finasteride 5 Mg Tab) 5 mg PO DAILY [facility] Stop: 09/22/20 08:59 Last Admin: 08/23/20 08:23 Dose: 5 mg Documented by: Furosemide (Furosemide 20 Mg Tab) 20 mg PO QAM [facility] Stop: 09/22/20 08:59 Last Admin: 08/23/20 08:23 Dose: 20 mg Documented by: Guaifenesin (Guaifenesin 600 Mg Tabcr) 600 mg PO Q12 [facility] Stop: 09/21/20 20:59 Last Admin: 08/23/20 08:23 Dose: 600 mg Documented by: Dexamethasone 6 mg/ Syringe 1.5 mls @ 1 mls/min IV Q24H [facility] Stop: 09/22/20 08:59 Last Admin: 08/23/20 08:23 Dose: 1 mls/min Documented by: Remdesivir 100 mg/ Sodium (Chloride) 250 mls @ 250 mls/hr IV Q24H [facility]; Protocol Stop: 08/26/20 12:59 Last Admin: 08/23/20 11:32 Dose: 250 mls/hr Documented by: Lisinopril ([facility] 10 Mg Tab) [facility] Stop: 09/22/20 08:59 Last Admin: 08/23/20 08:23 Dose: 10 mg Documented by: Pantoprazole Sodium (Pantoprazole 40 Mg Tab) 40 mg PO QAM [facility] Stop: 09/21/20 09:44 Last Admin: 08/23/20 08:23 Dose: 40 mg Documented by: Polyethylene Glycol (Polyethylene (Miralax) 17 Gm Pack) 17 gm PO DAILY PRN PRN Reason: Constipation Stop: 09/21/20 09:38 Potassium Phosphate (Pot Phosphate Monobasic W/ Sod Tab) 1 tab PO QID [facility] Stop: 09/21/20 16:59 Last Admin: 08/23/20 08:23 Dose: 1 tab Documented by: Sodium Chloride (Sodium Chloride 0.9% 10ml Flush) 30 ml IV Q24H [facility] Stop: 08/26/20 13:01 Last Admin: 08/22/20 14:49 Dose: 30 ml Documented by:
[2020-08-23] MEDS: SODIUM CHLORIDE 0.9% 10ML FLUSH IV SCH (12:44)
[2020-08-23] MEDS: ACETAMINOPHEN 325 MG TAB PO PRN (13:49)
[2020-08-23] MEDS: SACCHAROMYCES BOULARDII 250 MG CAP PO SCH (16:38)
[2020-08-24 07:01] LABS: Hematocrit (blood only) 40.1 % (42-52); Hemoglobin 13.8 g/dL (14.0-18.0); Mean Corpuscular Hemoglobin 28.8 pg (25-34); Mean Corpuscular Hgb Conc 34.4 g/dL (32-36); Mean Corpuscular Volume 83.5 fL (80-100); Mean Platelet Volume 9.4 fL (7.4-10.4); Platelet Count 204 K/uL (130-400); RDW Coefficient of Variation 13.3 % (11.5-14.5); RDW Standard Deviation 40.5 fL (36.4-46.3); White Blood Count 5.22 K/uL (4.8-10.8)
--- NOTE | 2020-08-24 07:32 | Hospitalist Progress Note ---
Date of Service August 24, 2020 Assessment & Plan (1) Acute respiratory failure with hypoxia: (2) Pneumonia due to COVID-19 virus: Patient presents with shortness of breath, cough, fevers Conversational dyspnea and tachypnea, desaturated to 88% in the ED Febrile in ED Chest x-ray consistent with multifocal, likely viral pneumonia ESR elevated at 29 Patient received Tylenol and Decadron in the ED We will continue Decadron for up to 10 days Remdesivir started on admission, will continue for up to 5 days, will continue to monitor AST and ALT Guaifenesin, encourage in incentive spirometer, flutter valve DuoNebs Monitor inflammatory markers procalcitonin - negative Patient has lower extremity edema, seems to be chronic however given the COVID- 19 status, there is a higher risk of possible clotting, will obtain lower extremity Dopplers Dopplers negative for DVT Clinically already patient is improved, breathing better, has now improved appetite, diarrhea resolved We will obtain a nocturnal hypoxia study, and a 2 step study tomorrow morning Plan to discharge tomorrow (3) Hypokalemia: -Patient has a history of hypokalemia, at home is on supplement 10 mEq twice a day -On admission potassium 3.4 -Replete and monitor (4) Hypertension: - Continue home lisinopril and furosemide - Monitor BP (5) GERD (gastroesophageal reflux disease): -PPI (6) Hyperlipidemia: -We will hold simvastatin while patient on remdesivir DVT prophylaxis: Lovenox Dispo: Med telemetry Code full Admission and Anticipated Discharge Date Admission Date: August 22, 2020 Subjective Patient seen in follow-up of hypoxia,COVID-19 pna Currently patient feels better, he is sitting up in the chair, in no acute distress Currently he is breathing on room air His appetite is better as well, eating w/o difficulty, diarrhea has resolved Currently he is breathing on room air, however desaturated earlier this morning and also overnight. Symptoms also positive for possible sleep apnea. Will obtain nocturnal hypoxia study tonight and then 2 step in the morning. Patient feels he should be ready for discharge tomorrow. Review of Systems Review of Systems: All systems reviewed & are unremarkable except as noted in HPI & below Constitutional: no fever and no chills Respiratory: + cough (improved) and + dyspnea (improved) Cardiovascular: no chest pain and no palpitations Gastrointestinal: no abdominal pain, no nausea and no vomiting Physical Exam Constitutional: WD/WN, vitals as above no acute distress Eyes: PERRL, conjunctivae normal, anicteric sclerae ENMT: external ear and nose normal, oropharynx normal Neck: trachea midline, no thyromegaly normal visual inspection Respiratory: normal respiratory effort, lungs clear to auscultation Auscult ation: no crackles, no rhonchi and no wheezes Cardiovascular: RRR, no murmur, no edema Chest (Breasts): Chest: normal inspection of chest Gastrointestinal (Abdomen): Inspection/Auscultation: abdomen normal to inspection Musculoskeletal: Head/Neck/Chest: normocephalic and head atraumatic Skin: no rashes, warm and dry Neurologic: PERRL, EOMI, accommodation nl, no face palsy, no dysarthria moves all extremities Psychiatric: A+Ox3, euthymic affect Genitourinary: no CVA tenderness Lymphatic: + lymphedema (LE b/l, L>R) Results & Data Results & Data ([facility]) Vital Signs (Past 12 Hours) Vital Signs Temp Pulse Pulse Resp BP Pulse Ox 08/24/20 03:48 36.8 C 57 L 20 130/72 91 08/24/20 00:23 91 08/23/20 23:40 36.7 C 54 L 20 123/81 88 L 08/23/20 23:00 49 L 08/23/20 19:35 79 18 93 Laboratory Results 08/24/20 08/24/20 Range/Units 06:38 06:38 WBC 5.22 (4.8-10.8) K/uL RBC 4.80 (4.7-6.1) M/uL Hgb 13.8 L (14.0-18.0) g/dL Hct 40.1 L (42-52) % MCV 83.5 (80-100) fL MCH 28.8 (25-34) pg MCHC 34.4 (32-36) g/dL RDW Std Deviation 40.5 (36.4-46.3) fL RDW Coeff of John 13.3 (11.5-14.5) % Plt Count 204 (130-400) K/uL MPV 9.4 (7.4-10.4) fL Sodium 140 (136-145) mmol/L Potassium 4.0 (3.5-5.1) mmol/L Chloride 106 (98-107) mmol/L Carbon Dioxide 30 (21-32) mmol/L Anion Gap 4.0 (3-11) BUN 17 (7-18) mg/dl Creatinine 0.84 (0.6-1.4) mg/dl Est Cr Clr Drug Dosing 136.4 ml/min Est GFR ( Amer) 118.3 Est GFR (Non-Af Amer) 102.1 BUN/Creatinine Ratio 20.1 H (10-20) Glucose 90 (70-99) mg/dl Calcium 8.7 (8.5-10.1) mg/dl Phosphorus 3.5 (2.5-4.9) mg/dl Magnesium 2.4 (1.8-2.4) mg/dl Total Bilirubin 0.5 (0.2-1) mg/dl AST 31 (15-37) U/L ALT 31 (12-78) U/L Alkaline Phosphatase 37 L (45-117) U/L Total Protein 7.0 (6.4-8.2) gm/dl Albumin 2.9 L (3.4-5.0) gm/dl Globulin 4.1 H (2.5-4.0) gm/dl Albumin/Globulin Ratio 0.7 L (0.9-2) Medications Administered Current Inpatient Medications Acetaminophen (Acetaminophen 325 Mg Tab) 650 mg PO Q4H PRN PRN Reason: Pain or Fever Stop: 09/21/20 09:38 Last Admin: 08/23/20 13:49 Dose: 650 mg Documented by: Albuterol (Albut/Ipratrop 3mg/0.5mg Neb 3 Ml Vial) 3 ml NEB Q4R PRN PRN Reason: Shortness Of Breath Or Wheezing Stop: 09/22/20 07:50 Albuterol (Albuterol Hfa 8 Gm Inhaler) 2 puffs INH QIDR [facility] Stop: 09/22/20 10:59 Last Admin: 08/23/20 19:35 Dose: 2 puffs Documented by: Citalopram Hydrobromide (Citalopram 40 Mg Tab) 40 mg PO QAM [facility] Stop: 09/22/20 08:59 Last Admin: 08/23/20 08:22 Dose: 40 mg Documented by: Enoxaparin Sodium (Enoxaparin Inj 40 Mg/0.4 Ml Syr) 40 mg SQ Q12 [facility] Stop: 09/21/20 10:44 Last Admin: 08/23/20 19:58 Dose: 40 mg Documented by: Finasteride (Finasteride 5 Mg Tab) 5 mg PO DAILY [facility] Stop: 09/22/20 08:59 Last Admin: 08/23/20 08:23 Dose: 5 mg Documented by: Furosemide (Furosemide 20 Mg Tab) 20 mg PO QAM [facility] Stop: 09/22/20 08:59 Last Admin: 08/23/20 08:23 Dose: 20 mg Documented by: Guaifenesin (Guaifenesin 600 Mg Tabcr) 600 mg PO Q12 [facility] Stop: 09/21/20 20:59 Last Admin: 08/23/20 19:59 Dose: 600 mg Documented by: Dexamethasone 6 mg/ Syringe 1.5 mls @ 1 mls/min IV Q24H [facility] Stop: 09/22/20 08:59 Last Admin: 08/23/20 08:23 Dose: 1 mls/min Documented by: Remdesivir 100 mg/ Sodium (Chloride) 250 mls @ 250 mls/hr IV Q24H [facility]; Protocol Stop: 08/26/20 12:59 Last Infusion: 08/23/20 12:32 Dose: Infused Documented by: Lisinopril (Lisinopril 10 Mg Tab) 10 mg PO QAM [facility] Stop: 09/22/20 08:59 Last Admin: 08/23/20 08:23 Dose: 10 mg Documented by: Pantoprazole Sodium (Pantoprazole 40 Mg Tab) 40 mg PO QAM [facility] Stop: 09/21/20 09:44 Last Admin: 08/23/20 08:23 Dose: 40 mg Documented by: Polyethylene Glycol (Polyethylene (Miralax) 17 Gm Pack) 17 gm PO DAILY PRN PRN Reason: Constipation Stop: 09/21/20 09:38 Potassium Phosphate (Pot Phosphate Monobasic W/ Sod Tab) 1 tab PO QID [facility] Stop: 09/21/20 16:59 Last Admin: 08/23/20 19:59 Dose: 1 tab Documented by: Saccharomyces Boulardii (Saccharomyces Boulardii 250 Mg Cap) 250 mg PO DAILY [facility] Stop: 09/22/20 15:29 Last Admin: 08/23/20 16:38 Dose: 250 mg Documented by: Sodium Chloride (Sodium Chloride 0.9% 10ml Flush) 30 ml IV Q24H [facility] Stop: 08/26/20 13:01 Last Admin: 08/23/20 12:44 Dose: 30 ml Documented by:
[2020-08-24 07:34] LABS: Albumin Level 2.9 gm/dl (3.4-5.0); BUN Creatinine Ratio 20.1 (10-20); Calcium 8.7 mg/dl (8.5-10.1); Creatinine Clr Calc Pharmacy 136.4 ml/min; Est GFR (African American) 118.3; Est GFR (Non-African American) 102.1; Magnesium 2.4 mg/dl (1.8-2.4)
[2020-08-24] MEDS: ALBUTEROL HFA 8 GM INHALER INH SCH ×4 (07:35→19:52)
[2020-08-24 07:38] LABS: Albumin Globulin Ratio 0.7 (0.9-2); Bilirubin,Total 0.5 mg/dl (0.2-1); Globulin 4.1 gm/dl (2.5-4.0); Phosphorus 3.5 mg/dl (2.5-4.9)
[2020-08-24] MEDS: dexAMETHasone 6 MG in SYRINGE 0 ML IV SCH (07:46)
[2020-08-24] MEDS: lisinopril 10 MG TAB PO SCH (07:46)
[2020-08-24] MEDS: FINASTERIDE 5 MG TAB PO SCH (07:46)
[2020-08-24] MEDS: FUROSEMIDE 20 MG TAB PO SCH (07:46)
[2020-08-24] MEDS: guaiFENesin 600 MG TABCR PO SCH ×2 (07:46→20:34)
[2020-08-24] MEDS: SACCHAROMYCES BOULARDII 250 MG CAP PO SCH (07:47)
[2020-08-24] MEDS: CITALOPRAM 40 MG TAB PO SCH (07:47)
[2020-08-24] MEDS: PANTOprazole 40 MG TAB PO SCH (07:48)
[2020-08-24] MEDS: POT PHOSPHATE MONOBASIC W/ SOD TAB PO SCH ×4 (07:48→20:34)
[2020-08-24] MEDS: ENOXAPARIN INJ 40 MG/0.4 ML SYR SQ SCH ×2 (07:48→20:33)
[2020-08-24] MEDS: REMDESIVIR 100 MG in SODIUM CHLORIDE 0.9% 230 ML IV SCH (11:07)
[2020-08-24] MEDS: SODIUM CHLORIDE 0.9% 10ML FLUSH IV SCH (11:07)
[2020-08-25] MEDS: dexAMETHasone 6 MG in SYRINGE 0 ML IV SCH (07:10)
[2020-08-25] MEDS: CITALOPRAM 40 MG TAB PO SCH (07:11)
[2020-08-25] MEDS: guaiFENesin 600 MG TABCR PO SCH (07:11)
[2020-08-25] MEDS: POT PHOSPHATE MONOBASIC W/ SOD TAB PO SCH ×2 (07:11→12:14)
[2020-08-25] MEDS: PANTOprazole 40 MG TAB PO SCH (07:11)
[2020-08-25] MEDS: FUROSEMIDE 20 MG TAB PO SCH (07:12)
[2020-08-25] MEDS: FINASTERIDE 5 MG TAB PO SCH (07:12)
[2020-08-25 07:13] LABS: Hematocrit (blood only) 41.8 % (42-52); Hemoglobin 14.5 g/dL (14.0-18.0); Mean Corpuscular Hgb Conc 34.7 g/dL (32-36); Mean Corpuscular Volume 83.6 fL (80-100); Mean Platelet Volume 9.2 fL (7.4-10.4); Platelet Count 241 K/uL (130-400); RDW Coefficient of Variation 13.3 % (11.5-14.5); RDW Standard Deviation 40.1 fL (36.4-46.3); White Blood Count 6.88 K/uL (4.8-10.8)
[2020-08-25] MEDS: SACCHAROMYCES BOULARDII 250 MG CAP PO SCH (07:13)
[2020-08-25] MEDS: lisinopril 10 MG TAB PO SCH (07:14)
[2020-08-25] MEDS: ENOXAPARIN INJ 40 MG/0.4 ML SYR SQ SCH (07:14)
[2020-08-25] MEDS: ALBUTEROL HFA 8 GM INHALER INH SCH ×2 (07:37→10:53)
[2020-08-25 08:10] LABS: Albumin Globulin Ratio 0.8 (0.9-2); Albumin Level 3.1 gm/dl (3.4-5.0); BUN Creatinine Ratio 19.2 (10-20); Bilirubin,Total 0.5 mg/dl (0.2-1); Calcium 9.1 mg/dl (8.5-10.1); Creatinine Clr Calc Pharmacy 136.2 ml/min; Est GFR (African American) 118.3; Est GFR (Non-African American) 102.1; Magnesium 2.4 mg/dl (1.8-2.4); Potassium 3.4 mmol/L (3.5-5.1); Total Protein 7.1 gm/dl (6.4-8.2)
[2020-08-25] MEDS ORDERED: POTASSIUM CHLORIDE CRTAB 20 MEQ TABCR PO STA (08:52)
[2020-08-25] MEDS ORDERED: FUROSEMIDE 10 MG in SYRINGE 0 ML IV ONE (08:56)
[2020-08-25] MEDS ORDERED: FUROSEMIDE 40 MG/4 ML VIAL IV ONE (09:00)
--- NOTE | 2020-08-25 10:22 | Hospitalist Progress Note ---
Date of Service August 25, 2020 Assessment & Plan (1) Acute respiratory failure with hypoxia: (2) Pneumonia due to COVID-19 virus: Patient presents with shortness of breath, cough, fevers Conversational dyspnea and tachypnea, desaturated to 88% in the ED Febrile in ED Chest x-ray consistent with multifocal, likely viral pneumonia ESR elevated at 29 Patient received Tylenol and Decadron in the ED We will continue Decadron for up to 10 days Remdesivir started on admission, will continue for up to 5 days, will continue to monitor AST and ALT Guaifenesin, encourage in incentive spirometer, flutter valve DuoNebs Monitor inflammatory markers procalcitonin - negative Patient has lower extremity edema, seems to be chronic however given the COVID- 19 status, there is a higher risk of possible clotting, will obtain lower extremity Dopplers Dopplers negative for DVT Clinically already patient is improved, breathing better, has now improved appetite, diarrhea resolved Obtained a nocturnal hypoxia study, and a 2 step this morning Patient will need 2 L of oxygen at night, and at rest, and 3 L with ambulation Plan to discharge today and follow up w/ PCP (3) Hypokalemia: -Patient has a history of hypokalemia, at home is on supplement 10 mEq twice a day -On admission potassium 3.4 -Replete and monitor (4) Hypertension: - Continue home lisinopril and furosemide - Monitor BP (5) GERD (gastroesophageal reflux disease): -PPI (6) Hyperlipidemia: -We will hold simvastatin while patient on remdesivir DVT prophylaxis: Lovenox Dispo: Med telemetry Code full Admission and Anticipated Discharge Date Admission Date: August 22, 2020 Subjective Patient seen in follow-up of hypoxia, COVID-19 pna Currently patient feels better, he is sitting up in the chair, in no acute distress Currently he is breathing on room air His appetite is better as well, eating w/o difficulty, diarrhea has resolved Currently he is breathing on room air, however desaturated earlier and overnight. Symptoms also seem c/w possible sleep apnea. Obtained nocturnal hypoxia study and 2 step this morning -patient needs 2 L overnight and at rest, service with ambulation. However currently he is on room air, resting and saturating 92%. Will contact case management, patient feels otherwise well and he is ready for discharge. Review of Systems Review of Systems: All systems reviewed & are unremarkable except as noted in HPI & below Constitutional: no fever and no chills Respiratory: + cough (improved) and + dyspnea (improved) Cardiovascular: no chest pain and no palpitations Gastrointestinal: no abdominal pain, no nausea and no vomiting Physical Exam Constitutional: WD/WN, vitals as above no acute distress Eyes: PERRL, conjunctivae normal, anicteric sclerae ENMT: external ear and nose normal, oropharynx normal Neck: trachea midline, no thyromegaly normal visual inspection Respiratory: normal respiratory effort, lungs clear to auscultation Auscultation: no crackles, no rhonchi and no wheezes Cardiovascular: RRR, no murmur, no edema Chest (Breasts): Chest: normal inspection of chest Gastrointestinal (Abdomen): Inspection/Auscultation: abdomen normal to inspection Musculoskeletal: Head/Neck/Chest: normocephalic and head atraumatic Skin: no rashes, warm and dry Neurologic: PERRL, EOMI, accommodation nl, no face palsy, no dysarthria moves all extremities Psychiatric: A+Ox3, euthymic affect Genitourinary: no CVA tenderness Lymphatic: + lymphedema (LE b/l, L>R) Results & Data Results & Data ([facility]) Vital Signs (Past 12 Hours) Vital Signs Temp Pulse Pulse Pulse Pulse Pulse Pulse 08/25/20 09:00 65 08/25/20 07:46 75 66 80 68 08/25/20 07:43 66 08/25/20 07:09 36.6 C 61 08/25/20 03:41 36.6 C 55 L 08/25/20 03:23 48 L 08/25/20 01:15 82 08/24/20 23:03 36.8 C 52 L 08/24/20 23:00 51 L Pulse Resp Resp Resp Resp Resp Resp 08/25/20 09:00 08/25/20 07:46 77 20 20 22 20 20 08/25/20 07:43 20 08/25/20 07:09 18 08/25/20 03:41 20 08/25/20 03:23 08/25/20 01:15 81 08/24/20 23:03 20 08/24/20 23:00 BP Pulse Ox Pulse Ox Pulse Ox Pulse Ox Pulse Ox Pulse Ox 08/25/20 09:00 08/25/20 07:46 91 94 85 L 92 86 L 08/25/20 07:43 95 08/25/20 07:09 135/96 94 08/25/20 03:41 146/85 H 91 08/25/20 03:23 89 L 08/25/20 01:15 91 86 L 08/24/20 23:03 127/77 88 L 08/24/20 23:00 Laboratory Results 08/25/20 08/25/20 Range/Units 06:12 06:12 WBC 6.88 (4.8-10.8) K/uL RBC 5.00 (4.7-6.1) M/uL Hgb 14.5 (14.0-18.0) g/dL Hct 41.8 L (42-52) % MCV 83.6 (80-100) fL MCH 29.0 (25-34) pg MCHC 34.7 (32-36) g/dL RDW Std Deviation 40.1 (36.4-46.3) fL RDW Coeff of John 13.3 (11.5-14.5) % Plt Count 241 (130-400) K/uL MPV 9.2 (7.4-10.4) fL Absolute Nucleated RBC 0.00 (0-0) K/uL Nucleated RBC % (auto) 0.0 % Sodium 138 (136-145) mmol/L Potassium 3.4 L (3.5-5.1) mmol/L Chloride 104 (98-107) mmol/L Carbon Dioxide 28 (21-32) mmol/L Anion Gap 7.0 (3-11) BUN 16 (7-18) mg/dl Creatinine 0.84 (0.6-1.4) mg/dl Est Cr Clr Drug Dosing 136.2 ml/min Est GFR ( Amer) 118.3 Est GFR (Non-Af Amer) 102.1 BUN/Creatinine Ratio 19.2 (10-20) Glucose 94 (70-99) mg/dl Calcium 9.1 (8.5-10.1) mg/dl Magnesium 2.4 (1.8-2.4) mg/dl Total Bilirubin 0.5 (0.2-1) mg/dl AST 35 (15-37) U/L ALT 37 (12-78) U/L Alkaline Phosphatase 39 L (45-117) U/L Total Protein 7.1 (6.4-8.2) gm/dl Albumin 3.1 L (3.4-5.0) gm/dl Globulin 4.0 (2.5-4.0) gm/dl Albumin/Globulin Ratio 0.8 L (0.9-2) Medications Administered Current Inpatient Medications Acetaminophen (Acetaminophen 325 Mg Tab) 650 mg PO Q4H PRN PRN Reason: Pain or Fever Stop: 09/21/20 09:38 Last Admin: 08/23/20 13:49 Dose: 650 mg Documented by: Albuterol (Albut/Ipratrop 3mg/0.5mg Neb 3 Ml Vial) 3 ml NEB Q4R PRN PRN Reason: Shortness Of Breath Or Wheezing Stop: 09/22/20 07:50 Albuterol (Albuterol Hfa 8 Gm Inhaler) 2 puffs INH QIDR [facility] Stop: 09/22/20 10:59 Last Admin: 08/25/20 07:37 Dose: 2 puffs Documented by: Citalopram Hydrobromide (Citalopram 40 Mg Tab) 40 mg PO QAM [facility] Stop: 09/22/20 08:59 Last Admin: 08/25/20 07:11 Dose: 40 mg Documented by: Enoxaparin Sodium (Enoxaparin Inj 40 Mg/0.4 Ml Syr) 40 mg SQ Q12 [facility] Stop: 09/21/20 10:44 Last Admin: 08/25/20 07:14 Dose: 40 mg Documented by: Finasteride (Finasteride 5 Mg Tab) 5 mg PO DAILY [facility] Stop: 09/22/20 08:59 Last Admin: 08/25/20 07:12 Dose: 5 mg Documented by: Furosemide (Furosemide 20 Mg Tab) 20 mg PO QAM [facility] Stop: 09/22/20 08:59 Last Admin: 08/25/20 07:12 Dose: 20 mg Documented by: Guaifenesin (Guaifenesin 600 Mg Tabcr) 600 mg PO Q12 [facility] Stop: 09/21/20 20:59 Last Admin: 08/25/20 07:11 Dose: 600 mg Documented by: Dexamethasone 6 mg/ Syringe 1.5 mls @ 1 mls/min IV Q24H [facility] Stop: 09/22/20 08:59 Last Admin: 08/25/20 07:10 Dose: 1 mls/min Documented by: Remdesivir 100 mg/ Sodium (Chloride) 250 mls @ 250 mls/hr IV Q24H [facility]; Protocol Stop: 08/26/20 12:59 Last Infusion: 08/24/20 12:26 Dose: Infused Documented by: Lisinopril (Lisinopril 10 Mg Tab) 10 mg PO QAM [facility] Stop: 09/22/20 08:59 Last Admin: 08/25/20 07:14 Dose: 10 mg Documented by: Pantoprazole Sodium (Pantoprazole 40 Mg Tab) 40 mg PO QAM [facility] Stop: 09/21/20 09:44 Last Admin: 08/25/20 07:11 Dose: 40 mg Documented by: Polyethylene Glycol (Polyethylene (Miralax) 17 Gm Pack) 17 gm PO DAILY PRN PRN Reason: Constipation Stop: 09/21/20 09:38 Potassium Phosphate (Pot Phosphate Monobasic W/ Sod Tab) 1 tab PO QID [facility] Stop: 09/21/20 16:59 Last Admin: 08/25/20 07:11 Dose: 1 tab Documented by: Saccharomyces Boulardii (Saccharomyces Boulardii 250 Mg Cap) 250 mg PO DAILY [facility] Stop: 09/22/20 15:29 Last Admin: 08/25/20 07:13 Dose: 250 mg Documented by: Sodium Chloride (Sodium Chloride 0.9% 10ml Flush) 30 ml IV Q24H [facility] Stop: 08/26/20 13:01 Last Admin: 08/24/20 11:07 Dose: 30 ml Documented by:
--- NOTE | 2020-08-25 10:46 | Discharge Summary ---
Date of Service August 25, 2020 Admission HPI Per Admitting Provider Mr. Watters is a 49-year-old male, with history of hypertension, hyperlipidemia, GERD, who presents with shortness of breath, cough, fevers of several days. He was also positive for COVID-19 in an outpatient facility. He presents in ED today because of worsening symptoms. He also reports loss of taste and smell, and poor appetite. Did not eat since Osorio evening. Was having conversational dyspnea and desaturated in the ED into 88%. Was also found febrile in the emergency room, and received Tylenol. Denies any abdominal pain, vomiting, diarrhea. In the ED COVID-19 PCR was confirmed, ESR elevated at 29. Chest x-ray significant for multifocal airspace opacities suspicious for multifocal pneumonia. Patient also reports having lower extremity edema, denies any pain, left lower extremity is slightly bigger edema than the right one, and patient reports that is not unusual for him. Currently he is actually saturating on room air, feels better after getting Decadron in the ED. Admission Exam Per Admitting Provider Constitutional: WD/WN, vitals as above no acute distress Eyes: PERRL, conjunctivae normal, anicteric sclerae ENMT: external ear and nose normal, oropharynx normal Neck: trachea midline, no thyromegaly normal visual inspection Respiratory: normal respiratory effort, lungs clear to auscultation Ausc ultation: + rhonchi (mild); no crackles and no wheezes Cardiovascular: RRR, no murmur, no edema Chest (Breasts): Chest: normal inspection of chest Gastrointestinal (Abdomen): Inspection/Auscultation: abdomen normal to inspection Musculoskeletal: Head/Neck/Chest: normocephalic and head atraumatic Skin: no rashes, warm and dry Neurologic: PERRL, EOMI, accommodation nl, no face palsy, no dysarthria moves all extremities Psychiatric: A+Ox3, euthymic affect Genitourinary: no CVA tenderness Lymphatic: + lymphedema (LE b/l, L>R) Principal Diagnosis Acute hypoxic respiratory failure due to COVID-19 pneumonia Discharge Exam Constitutional WD/WN, vitals as above no acute distress Eyes PERRL, conjunctivae normal, anicteric sclerae ENMT external ear and nose normal, oropharynx normal Neck trachea midline, no thyromegaly normal visual inspection Respiratory normal respiratory effort, lungs clear to auscultation Auscultation: no crackles, no rhonchi and no wheezes Cardiovascular RRR, no murmur, no edema Chest (Breasts) Chest: normal inspection of chest Gastrointestinal (Abdomen) Inspection/Auscultation: abdomen normal to inspection Musculoskeletal Head/Neck/Chest: normocephalic and head atraumatic Skin no rashes, warm and dry Neurologic PERRL, EOMI, accommodation nl, no face palsy, no dysarthria moves all extremities Psychiatric A+Ox3, euthymic affect Genitourinary no CVA tenderness Lymphatic + lymphedema (LE b/l, L>R) Discharge Data Allergies Allergy/AdvReac Type Severity Reaction Status Date / Time No Known Allergies Allergy Unknown Verified 08/22/20 08:54 Consultations 08/22/20 09:42 ED Decision to Admit Stat Ordered Studies 08/22/20 10:50 US venous doppler LE BI Routine IMPRESSION: No DVT within the right or left lower extremity. Hospital Course (1) Acute respiratory failure with hypoxia: (2) Pneumonia due to COVID-19 virus: Patient presents with shortness of breath, cough, fevers Conversational dyspnea and tachypnea, desaturated to 88% in the ED Febrile in ED Chest x-ray consistent with multifocal, likely viral pneumonia ESR elevated at 29 Patient received Tylenol and Decadron in the ED We will continue Decadron for up to 10 days Remdesivir started on admission, will continue for up to 5 days, will continue to monitor AST and ALT Guaifenesin, encourage in incentive spirometer, flutter valve DuoNebs Monitor inflammatory markers procalcitonin - negative Patient has lower extremity edema, seems to be chronic however given the COVID- 19 status, there is a higher risk of possible clotting, will obtain lower extremity Dopplers Dopplers negative for DVT Clinically already patient is improved, breathing better, has now improved appetite, diarrhea resolved Obtained a nocturnal hypoxia study, and a 2 step this morning Patient will need 2 L of oxygen at night, and at rest, and 3 L with ambulation Plan to discharge today and follow up w/ PCP (3) Hypokalemia: -Patient has a history of hypokalemia, at home is on supplement 10 mEq twice a day -On admission potassium 3.4 -Replete and monitor (4) Hypertension: - Continue home lisinopril and furosemide - Monitor BP (5) GERD (gastroesophageal reflux disease): -PPI (6) Hyperlipidemia: -We will hold simvastatin while patient on remdesivir DVT prophylaxis: Lovenox Dispo: Med telemetry Code full Total Time Total Time Spent Total Time Spent (In Minutes): 35 Total Time Includes: Examination of the Patient, Discharge Planning and Medication Reconciliation Discharge Plan Discharge Items Patient Disposition: Home - Self-Care Reason For Visit: COVID PNA, HYPOXIA Discharge Diagnosis: Acute hypoxic respiratory failure due to COVID-19 pneumonia Condition on Discharge: Good Activity: Per Instructions section Non-emergency contact: Primary Care Provider Call non-emergency contact if: you have any medication questions and your symptoms worsen Follow-up/Referrals: Eleazar Baptiste MD [Primary Care Provider] - (Date & Time 08/30/2020 11:20 AM Provider Eleazar Baptiste MD Department Family Medicine [facility] PLEASE NOTE THAT THIS IS A TELEHEALTH APPOINTMENT. PLEASE FOLLOW THE INSTRUCTIONS PROVIDED IN YOUR EMAIL. IF YOU HAVE ANY QUESTIONS REGARDING THIS APPOINTMENT, PLEASE CALL ) Diet: Heart Healthy Addtl Attending Provider Instructions: Follow-up with your primary care doctor, the appointment was scheduled for you for August 30. This may be a telemedicine visit. Continue to take Decadron as prescribed. Continue using your flutter valve and incentive spirometry. Use supplemental oxygen via nasal cannula, 2 L at rest, and 3 L with ambulation, and use 2 L during sleep. You may need an official outpatient sleep sleep study to evaluate for possible sleep apnea, after you recover from COVID-19 infection. Please read below information about COVID-19 infection and home isolation. Discuss further with your primary care doctor about when you should get vaccinated for COVID-19. Addtl Yarder Puncher Provider Instructions: Coronavirus disease 2019 (COVID-19) is a virus that causes a respiratory illness. It is caused by a coronavirus called 2019 novel coronavirus (2019- nCoV). There are many types of coronavirus. Coronaviruses are a very common cause of bronchitis. They may sometimes cause lung infection(pneumonia). Symptoms can range from mild to severe respiratory illness. These viruses are also foundin some animals. COVID-19 was first found in people in [facility], in late 2019. In 2020, several cases of COVID-19 have been confirmed in the [place] Public health officials are working to find the source. How the virus spreads is not yet fully known. It may be spread through droplets of fluid that a person coughs or sneezes into the air. It may be spread if you touch a surface with virus on it, such as a handle or object, and then touch your mouth. What are the symptoms of COVID-19? Some people have no symptoms or mild symptoms. Symptoms may appear 2 to 14 days after contact with the virus. Symptoms can include: Fever Coughing Trouble breathing What are possible complications from COVID-19? In many cases, this virus can cause infection (pneumonia) in both lungs. In some cases, this can cause . How is COVID-19 diagnosed? Your healthcare provider will ask about your symptoms. He or she will also ask about your recent travel and contact with sick people. Testing for the virus is only done through the CDC. If yourhealthcare provider thinks you may have COVID- 19, he or she will work with your local health department and the CDC on testing. Follow all instructions from your healthcare provider. COVID-19 is diagnosed by: Nasal and throat swab. A cotton-tipped swab is wiped inside your nose or throat. This is done to check for viruses in your nasal mucus. Sputum culture. A small sample of mucus coughed from your lungs (sputum) is collected if you have a cough. It is checked for the virus. How is COVID-19 treated? There is currently no medicine to treat the virus. Treatment is done to help your body while it fights the virus. This is known as supportive care. Supportive care may include: Pain medicine. These include acetaminophen and ibuprofen. They are used to help ease pain and reduce fever. Bed rest. This helps your body fight the illness. For severe illness, you may need to stay in the hospital. Care during severe illness may include: IV (intravenous) fluids.These are given through a vein to help keep your body hydrated. Oxygen. Supplemental oxygen or ventilation with a breathing machine (ventilator) may be given. This is done to keep enough oxygen in your body. Are you at risk for COVID-19? If youve been to a place where people have been sick with this virus, you are at risk for infection. You are at risk if you: Recently traveled to an affected area Had contact with a sick person who recently traveled to this area Had contact with a person who was diagnosed with COVID-19 How can COVID-19 be prevented? There is no vaccine yet. The best prevention is to not have contact with the virus. The CDC advises that people should not travel to areas where there are COVID-19 outbreaks right now for any reason that is not urgent. To help prevent spreading the infection, wash your hands often, or use an alcohol-basedhand ecological risk assessor. If you are in an area with COVID-19: Wash your hands often. Or use an alcohol-based hand ecological risk assessor often. Only touch your eyes, nose, or mouth with clean hands. Dont have contact with people who are sick. Follow local instructions about being in public. For example, you may be told to not use public transport for a period of time. Stay away from markets that have live or animals. Wash your hands after touching any animals. Don't touch animals that may be sick. Dont share eating or drinking tools with sick people. Dont kiss someone who is sick. Clean surfaces often with disinfectant. If you were in an area with COVID-19 in the last 14 days: Call your healthcare provider. He or she can talk with local health staff to see what action may be needed. Follow all instructions from your provider. Take your temperature every morning and evening for at least 14 days. This is to check for fever. Keep a record of the readings. Keep watch for symptoms of the virus. Tell your provider right away if you have symptoms. If you were in an area with COVID-19 and have a fever or other symptoms: Dont panic. Keep in mind that other illnesses can cause similar symptoms. Stay away from work, school, and public places. Limit physical contact with family members. Don't kiss anyone or share eating or drinking utensils. Clean surfaces you touch with disinfectant. This is to help prevent the virus from spreading. Call your healthcare provider. Explain that you have been exposed to COVID-19 and have symptoms. Do this before going to any hospital. Wait for instructions. Keep in mind that healthcare staff may wear protective equipment such as masks, gowns, gloves, and eye protection. You may be put in a separate room. This is to prevent the possible virus from spreading. Tell the healthcare staff about recent travel. This includes local travel on public transport. Staff may need to find other people you have been in contact with. Follow all instructions the healthcare staff give you. If you have been diagnosed with COVID-19 Follow all instructions from your healthcare provider. Dont leave your home, except to get medical care. Call your healthcare providers office before going. They can prepare and give you instructions. This will help prevent the virus from spreading. Dont go to work, school, or public areas. Dont use public transport or taxis. Stay away from other people in your home. Have them wear face masks around you. Dont share household items or food. Wear a face mask if you can. This includes at home or in a medical facility. Cover your face with a tissue when you cough or sneeze. Throw the tissue away. Wash your hands. Wash your hands often. Caregivers should: Follow all instructions from healthcare staff. Wear a face mask and protective clothing as advised. Wash hands often. Keep track of the sick persons symptoms. Clean surfaces, fabrics, and laundry thoroughly. Keep other people away from the sick person. When to call your healthcare provider Call your healthcare provider: If youve recently traveled and have symptoms If you have been diagnosed with COVID-19 and your symptoms are worse To learn more To find out more about COVID-19, visit the CDC website at www.cdc.gov/coronavirus/2019-ncov/index.html. [employer]. [address] [place] [address]. All rights reserved. This information is not intended as a substitute for professional medical care. Always follow your healthcare professional's instructions. This information has been adapted from [employer] Home Isolation COVID-19 Instructions The following information about Home Isolation is from the CDC Website: https://www.cdc.gov/coronavirus/2019-ncov/hcp/dytafbov-cwgdxws-ubnwdp.html Stay home except to get medical care People who are mildly ill with COVID-19 are able to isolate at home during their illness. You should restrict activities outside your home, except for getting medical care. Do not go to work, school, or public areas. Avoid using public transportation, ride-sharing, or taxis. Separate yourself from other people and animals in your home People: As much as possible, you should stay in a specific room and away from other people in your home. Also, you should use a separate bathroom, if available. Animals: You should restrict contact with pets and other animals while you are sick with COVID-19, just like you would around other people. Although there have not been reports of pets or other animals becoming sick with COVID-19, it is still recommended that people sick with COVID-19 limit contact with animals until more information is known about the virus. When possible, have another member of your household care for your animals while you are sick. If you are sick with COVID-19, avoid contact with your pet, including petting, snuggling, being kissed or licked, and sharing food. If you must care for your pet or be around animals while you are sick, wash your hands before and after you interact with pets and wear a face mask. Call ahead before visiting your doctor If you have a medical appointment, call the healthcare provider and tell them that you have or may have COVID-19. This will help the healthcare providers office take steps to keep other people from getting infected or exposed. Wear a face mask You should wear a face mask when you are around other people (e.g., sharing a room or vehicle) or pets and before you enter a healthcare providers office. If you are not able to wear a face mask (for example, because it causes trouble breathing), then people who live with you should not stay in the same room with you, or they should wear a face mask if they enter your room. Cover your coughs and sneezes Cover your mouth and nose with a tissue when you cough or sneeze. Throw used tissues in a lined trash can. Immediately wash your hands with soap and water for at least 20 seconds or, if soap and water are not available, clean your hands with an alcohol-based hand ecological risk assessor that contains at least 60% alcohol. Clean your hands often Wash your hands often with soap and water for at least 20 seconds, especially after blowing your nose, coughing, or sneezing; going to the bathroom; and before eating or preparing food. If soap and water are not readily available, use an alcohol-based hand ecological risk assessor with at least 60% alcohol, covering all surfaces of your hands and rubbing them together until they feel dry. Soap and water are the best option if hands are visibly dirty. Avoid touching your eyes, nose, and mouth with unwashed hands. Avoid sharing personal household items You should not share dishes, drinking glasses, cups, eating utensils, towels, or bedding with other people or pets in your home. After using these items, they should be washed thoroughly with soap and water. Clean all high-touch surfaces everyday High touch surfaces include counters, tabletops, doorknobs, bathroom fixtures, toilets, phones, keyboards, tablets, and bedside tables. Also, clean any surfaces that may have blood, stool, or body fluids on them. Use a household cleaning spray or wipe, according to the label instructions. Labels contain instructions for safe and effective use of the cleaning product including precautions you should take when applying the product, such as wearing gloves and making sure you have good ventilation during use of the product. Monitor your symptoms Seek prompt medical attention if your illness is worsening (e.g., difficulty breathing).Beforeseeking care, call your healthcare provider and tell them that you have, or are being evaluated for, COVID-19. Put on a face mask before you enter the facility. These steps will help the healthcare providers office to keep other people in the office or waiting room from getting infected or exposed. Ask your healthcare provider to call the local or state health department. Persons who are placed under active monitoring or facilitated self- monitoring should follow instructions provided by their local health department or occupational health professionals, as appropriate. When working with your local health department check their available hours. If you have a medical emergency and need to call 911, notify the dispatch personnel that you have, or are being evaluated for COVID-19. If possible, put on a face mask before emergency medical services arrive. Discontinuing home isolation Patients with confirmed COVID-19 should remain under home isolation precautions until the risk of secondary transmission to others is thought to be low. The decision to discontinue home isolation precautions should be made on a [id number] basis, in consultation with healthcare providers and [facility] and local health departments. Pending Studies at Discharge: No Stand-Alone Forms: [employer], Smoking Cessation Medications and DC Order Prescriptions: New guaifenesin [Mucinex] 600 mg Tablet Extended Release 12hr 600 mg PO Q12 Qty: 10 RF: 0 dexamethasone [Decadron] 6 mg tablet 6 mg PO DAILY Qty: 5 RF: 0 Continued atorvastatin 20 mg tablet 20 mg PO QAM RF: 0 citalopram 40 mg tablet 40 mg PO QAM RF: 0 potassium chloride 10 mEq tablet extended release 10 meq PO BID RF: 0 lisinopril 10 mg tablet 10 mg PO QAM RF: 0 omeprazole 20 mg capsule,delayed release(DR/EC) 20 mg PO QAM RF: 0 furosemide 20 mg tablet 20 mg PO QAM RF: 0 finasteride 5 mg tablet 5 mg PO DAILY RF: 0 Discharge Orders: Discharge Order (Routine); Ordered 08/25/20 Ordered By: Austin Yu Admission Data Admit Date/Time: 08/22/20 09:38 Attending Provider: Erwin Dallas Admit Provider: Austin Yu Primary Care Provider: Eleazar Baptiste Other Providers: Austin Yu
[2020-08-25] MEDS ORDERED: SIMETHICONE 80 MG CHEW PO PRN (10:49)
--- NOTE | 2020-08-25 10:51 | Discharge Summary ---
Date of Service August 25, 2020 Admission HPI Per Admitting Provider Mr. Watters is a 49-year-old male, with history of hypertension, hyperlipidemia, GERD, who presents with shortness of breath, cough, fevers of several days. He was also positive for COVID-19 in an outpatient facility. He presents in ED today because of worsening symptoms. He also reports loss of taste and smell, and poor appetite. Did not eat since Sunday evening. Was having conversational dyspnea and desaturated in the ED into 88%. Was also found febrile in the emergency room, and received Tylenol. Denies any abdominal pain, vomiting, diarrhea. In the ED COVID-19 PCR was confirmed, ESR elevated at 29. Chest x-ray significant for multifocal airspace opacities suspicious for multifocal pneumonia. Patient also reports having lower extremity edema, denies any pain, left lower extremity is slightly bigger edema than the right one, and patient reports that is not unusual for him. Currently he is actually saturating on room air, feels better after getting Decadron in the ED. Discharge Exam Constitutional WD/WN, vitals as above no acute distress Eyes PERRL, conjunctivae normal, anicteric sclerae ENMT external ear and nose normal, oropharynx normal Neck trachea midline, no thyromegaly normal visual inspection Respiratory normal respiratory effort, lungs clear to auscultation Auscultation: no crackles, no rhonchi and no wheezes Cardiovascular RRR, no murmur, no edema Chest (Breasts) Chest: normal inspection of chest Gastrointestinal (Abdomen) Inspection/Auscultation: abdomen normal to inspection Musculoskeletal Head/Neck/Chest: normocephalic and head atraumatic Skin no rashes, warm and dry Neurologic PERRL, EOMI, accommodation nl, no face palsy, no dysarthria moves all extremities Psychiatric A+Ox3, euthymic affect Genitourinary no CVA tenderness Lymphatic + lymphedema (LE b/l, L>R) Discharge Data Allergies Allergy/AdvReac Type Severity Reaction Status Date / Time No Known Allergies Allergy Unknown Verified 08/22/20 08:54 Consultations 08/22/20 09:42 ED Decision to Admit Stat Ordered Studies 08/22/20 10:50 US venous doppler LE Routine Hospital Course (1) Acute respiratory failure with hypoxia: (2) Pneumonia due to COVID-19 virus: Patient presents with shortness of breath, cough, fevers Conversational dyspnea and tachypnea, desaturated to 88% in the ED Febrile in ED Chest x-ray consistent with multifocal, likely viral pneumonia ESR elevated at 29 Patient received Tylenol and Decadron in the ED We will continue Decadron for up to 10 days Remdesivir started on admission, will continue for up to 5 days, will continue to monitor AST and ALT Guaifenesin, encourage in incentive spirometer, flutter valve DuoNebs Monitor inflammatory markers procalcitonin - negative Patient has lower extremity edema, seems to be chronic however given the COVID- 19 status, there is a higher risk of possible clotting, will obtain lower extremity Dopplers Dopplers negative for DVT Clinically already patient is improved, breathing better, has now improved appetite, diarrhea resolved Obtained a nocturnal hypoxia study, and a 2 step this morning Patient will need 2 L of oxygen at night, and at rest, and 3 L with ambulation Plan to discharge today and follow up w/ PCP (3) Hypokalemia: -Patient has a history of hypokalemia, at home is on supplement 10 mEq twice a day -On admission potassium 3.4 -Replete and monitor (4) Hypertension: - Continue home lisinopril and furosemide - Monitor BP (5) GERD (gastroesophageal reflux disease): -PPI (6) Hyperlipidemia: -We will hold simvastatin while patient on remdesivir DVT prophylaxis: Lovenox Dispo: Med telemetry Code full Discharge Plan Discharge Items Patient Disposition: Home - Self-Care Reason For Visit: COVID PNA, HYPOXIA Discharge Diagnosis: Acute hypoxic respiratory failure due to COVID-19 pneumonia Condition on Discharge: Good Activity: Per Instructions section Non-emergency contact: Primary Care Provider Call non-emergency contact if: you have any medication questions and your symptoms worsen Follow-up/Referrals: Eleazar Baptiste MD [Primary Care Provider] - (Date & Time 08/30/2020 11:20 AM Provider Eleazar Baptiste MD Department Family Medicine [facility] PLEASE NOTE THAT THIS IS A TELEHEALTH APPOINTMENT. PLEASE FOLLOW THE INSTRUCTIONS PROVIDED IN YOUR EMAIL. IF YOU HAVE ANY QUESTIONS REGARDING THIS APPOINTMENT, PLEASE CALL ) Diet: Heart Healthy Addtl Attending Provider Instructions: Follow-up with your primary care doctor, the appointment was scheduled for you for August 30. This may be a telemedicine visit. Continue to take Decadron as prescribed. Continue using your flutter valve and incentive spirometry. Use supplemental oxygen via nasal cannula, 2 L at rest, and 3 L with ambulation, and use 2 L during sleep. You may need an official outpatient sleep sleep study to evaluate for possible sleep apnea, after you recover from COVID-19 infection. Please read below information about COVID-19 infection and home isolation. Discuss further with your primary care doctor about when you should get vaccinated for COVID-19. Addtl [employer]or Provider Instructions: Coronavirus disease 2019 (COVID-19) is a virus that causes a respiratory illness. It is caused by a coronavirus called 2019 novel coronavirus (2019- nCoV). There are many types of coronavirus. Coronaviruses are a very common ca use of bronchitis. They may sometimes cause lung infection(pneumonia). Symptoms can range from mild to severe respiratory illness. These viruses are also foundin some animals. COVID-19 was first found in people in [facility], in late 2018. In 2020, several cases of COVID-19 have been confirmed in the [place] Public health officials are working to find the source. How the virus spreads is not yet fully known. It may be spread through droplets of fluid that a person coughs or sneezes into the air. It may be spread if you touch a surface with virus on it, such as a handle or object, and then touch your mouth. What are the symptoms of COVID-19? Some people have no symptoms or mild symptoms. Symptoms may appear 2 to 14 days after contact with the virus. Symptoms can include: Fever Coughing Trouble breathing What are possible complications from COVID-19? In many cases, this virus can cause infection (pneumonia) in both lungs. In some cases, this can cause . How is COVID-19 diagnosed? Your healthcare provider will ask about your symptoms. He or she will also ask about your recent travel and contact with sick people. Testing for the virus is only done through the CDC. If yourhealthcare provider thinks you may have COVID- 19, he or she will work with your local health department and the CDC on alverto ting. Follow all instructions from your healthcare provider. COVID-19 is diagnosed by: Nasal and throat swab. A cotton-tipped swab is wiped inside your nose or throat. This is done to check for viruses in your nasal mucus. Sputum culture. A small sample of mucus coughed from your lungs (sputum) is collected if you have a cough. It is checked for the virus. How is COVID-19 treated? There is currently no medicine to treat the virus. Treatment is done to help your body while it fights the virus. This is known as supportive care. Supportive care may include: Pain medicine. These include acetaminophen and ibuprofen. They are used to help ease pain and reduce fever. Bed rest. This helps your body fight the illness. For severe illness, you may need to stay in the hospital. Care during severe illness may include: IV (intravenous) fluids.These are given through a vein to help keep your body hydrated. Oxygen. Supplemental oxygen or ventilation with a breathing machine (ventilator) may be given. This is done to keep enough oxygen in your body. Are you at risk for COVID-19? If youve been to a place where people have been sick with this virus, you are at risk for infection. You are at risk if you: Recently traveled to an affected area Had contact with a sick person who recently traveled to this area Had contact with a person who was diagnosed with COVID-19 How can COVID-19 be prevented? There is no vaccine yet. The best prevention is to not have contact with the virus. The CDC advises that people should not travel to areas where there are COVID-19 outbreaks right now for any reason that is not urgent. To help prevent spreading the infection, wash your hands often, or use an alcohol-basedhand search analyst. If you are in an area with COVID-19: Wash your hands often. Or use an alcohol-based hand search analyst often. Only touch your eyes, nose, or mouth with clean hands. Dont have contact with people who are sick. Follow local instructions about being in public. For example, you may be told to not use public transport for a period of time. Stay away from markets that have live or animals. Wash your hands after touching any animals. Don't touch animals that may be sick. Dont share eating or drinking tools with sick people. Dont kiss someone who is sick. Clean surfaces often with disinfectant. If you were in an area with COVID-19 in the last 14 days: Call your healthcare provider. He or she can talk with local health staff to see what action may be needed. Follow all instructions from your provider. Take your temperature every morning and evening for at least 14 days. This is to check for fever. Keep a record of the readings. Keep watch for symptoms of the virus. Tell your provider right away if you have symptoms. If you were in an area with COVID-19 and have a fever or other symptoms: Dont panic. Keep in mind that other illnesses can cause similar symptoms. Stay away from work, school, and public places. Limit physical contact with family members. Don't kiss anyone or share eating or drinking utensils. Clean surfaces you touch with disinfectant. This is to help prevent the virus from spreading. Call your healthcare provider. Explain that you have been exposed to COVID-19 and have symptoms. Do this before going to any hospital. Wait for instructions. Keep in mind that healthcare staff may wear protective equipment such as masks, gowns, gloves, and eye protection. You may be put in a separate room. This is to prevent the possible virus from spreading. Tell the healthcare staff about recent travel. This includes local travel on public transport. Staff may need to find other people you have been in contact with. Follow all instructions the healthcare staff give you. If you have been diagnosed with COVID-19 Follow all instructions from your healthcare provider. Dont leave your home, except to get medical care. Call your healthcare providers office before going. They can prepare and give you instructions. This will help prevent the virus from spreading. Dont go to work, school, or public areas. Dont use public transport or taxis. Stay away from other people in your home. Have them wear face masks around you. Dont share household items or food. Wear a face mask if you can. This includes at home or in a medical facility. Cover your face with a tissue when you cough or sneeze. Throw the tissue away. Wash your hands. Wash your hands often. Caregivers should: Follow all instructions from healthcare staff. Wear a face mask and protective clothing as advised. Wash hands often. Keep track of the sick persons symptoms. Clean surfaces, fabrics, and laundry thoroughly. Keep other people away from the sick person. When to call your healthcare provider Call your healthcare provider: If youve recently traveled and have symptoms If you have been diagnosed with COVID-19 and your symptoms are worse To learn more To find out more about COVID-19, visit the CDC website at www.cdc.gov/coronavirus/2019-ncov/index.html. The [employer]. [address] [place] [address], [place] [address]. All rights reserved. This information is not intended as a substitute for professional medical care. Always follow your healthcare professional's instructions. This information has been adapted from [employer] Home Isolation COVID-19 Instructions The following information about Home Isolation is from the CDC Website: https://www.cdc.gov/coronavirus/2019-ncov/hcp/kxevjxzy-ykqwhwz-nquchd.html Stay home except to get medical care People who are mildly ill with COVID-19 are able to isolate at home during their illness. You should restrict activities outside your home, except for getting medical care. Do not go to work, school, or public areas. Avoid using public transportation, ride-sharing, or taxis. Separate yourself from other people and animals in your home People: As much as possible, you should stay in a specific room and away from other people in your home. Also, you should use a separate bathroom, if avai lable. Animals: You should restrict contact with pets and other animals while you are sick with COVID-19, just like you would around other people. Although there have not been reports of pets or other animals becoming sick with COVID-19, it is still recommended that people sick with COVID-19 limit contact with animals until more information is known about the virus. When possible, have another member of your household care for your animals while you are sick. If you are sick with COVID-19, avoid contact with your pet, including petting, snuggling, being kissed or licked, and sharing food. If you must care for your pet or be around animals while you are sick, wash your hands before and after you interact with pets and wear a face mask. Call ahead before visiting your doctor If you have a medical appointment, call the healthcare provider and tell them that you have or may have COVID-19. This will help the healthcare providers office take steps to keep other people from getting infected or exposed. Wear a face mask You should wear a face mask when you are around other people (e.g., sharing a room or vehicle) or pets and before you enter a healthcare providers office. If you are not able to wear a face mask (for example, because it causes trouble breathing), then people who live with you should not stay in the same room with you, or they should wear a face mask if they enter your room. Cover your coughs and sneezes Cover your mouth and nose with a tissue when you cough or sneeze. Throw used tissues in a lined trash can. Immediately wash your hands with soap and water for at least 20 seconds or, if soap and water are not available, clean your hands with an alcohol-based hand search analyst that contains at least 60% alcohol. Clean your hands often Wash your hands often with soap and water for at least 20 seconds, especially after blowing your nose, coughing, or sneezing; going to the bathroom; and before eating or preparing food. If soap and water are not readily available, use an alcohol-based hand search analyst with at least 60% alcohol, covering all surfaces of your hands and rubbing them together until they feel dry. Soap and water are the best option if hands are visibly dirty. Avoid touching your eyes, nose, and mouth with unwashed hands. Avoid sharing personal household items You should not share dishes, drinking glasses, cups, eating utensils, towels, or bedding with other people or pets in your home. After using these items, they should be washed thoroughly with soap and water. Clean all high-touch surfaces everyday High touch surfaces include counters, tabletops, doorknobs, bathroom fixtures, toilets, phones, keyboards, tablets, and bedside tables. Also, clean any surfaces that may have blood, stool, or body fluids on them. Use a household cleaning spray or wipe, according to the label instructions. Labels contain instructions for safe and effective use of the cleaning product including precautions you should take when applying the product, such as wearing gloves and making sure you have good ventilation during use of the product. Monitor your symptoms Seek prompt medical attention if your illness is worsening (e.g., difficulty breathing).Beforeseeking care, call your healthcare provider and tell them that you have, or are being evaluated for, COVID-19. Put on a face mask before you enter the facility. These steps will help the healthcare providers office to keep other people in the office or waiting room from getting infected or exposed. Ask your healthcare provider to call the local or state health department. Persons who are placed under active monitoring or facilitated self- monitoring should follow instructions provided by their local health department or occupational health professionals, as appropriate. When working with your local health department check their available hours. If you have a medical emergency and need to call 911, notify the dispatch personnel that you have, or are being evaluated for COVID-19. If possible, put on a face mask before emergency medical services arrive. Discontinuing home isolation Patients with confirmed COVID-19 should remain under home isolation precautions until the risk of secondary transmission to others is thought to be low. The decision to discontinue home isolation precautions should be made on a [id number] basis, in consultation with healthcare providers and [facility] and [facility] health departments. Pending Studies at Discharge: No Stand-Alone Forms: [facility] [employer], Smoking Cessation Medications and DC Order Prescriptions: New guaifenesin [Mucinex] 600 mg Tablet Extended Release 12hr 600 mg PO Q12 Qty: 10 RF: 0 dexamethasone [Decadron] 6 mg tablet 6 mg PO DAILY Qty: 5 RF: 0 Continued atorvastatin 20 mg tablet 20 mg PO QAM RF: 0 citalopram 40 mg tablet 40 mg PO QAM RF: 0 potassium chloride 10 mEq tablet extended release 10 meq PO BID RF: 0 lisinopril 10 mg tablet 10 mg PO QAM RF: 0 omeprazole 20 mg capsule,delayed release(DR/EC) 20 mg PO QAM RF: 0 furosemide 20 mg tablet 20 mg PO QAM RF: 0 finasteride 5 mg tablet 5 mg PO DAILY RF: 0 Discharge Orders: Discharge Order (Routine); Ordered 08/25/20 Ordered By: Austin Yu Admission Data Admit Date/Time: 08/22/20 09:38 Attending Provider: Erwin Dallas Admit Provider: Austin Yu Primary Care Provider: Eleazar Baptiste Other Providers: Austin Yu
[2020-08-25] MEDS: ACETAMINOPHEN 325 MG TAB PO PRN (10:58)
[2020-08-25] MEDS: REMDESIVIR 100 MG in SODIUM CHLORIDE 0.9% 230 ML IV SCH (11:00)
[2020-08-25] MEDS: SODIUM CHLORIDE 0.9% 10ML FLUSH IV SCH (11:52)
== END 2020-08-25 15:02 | disposition home or self-care (01) | DRG 177 ==
LOC: ED 07:22 → 2E 09:38 → SUATTDRO 09:38 → 2E 10:20
DX: I10 Essential (primary) hypertension; E87.6 Hypokalemia; K21.9 Gastro-esophageal reflux disease without esophagitis; U07.1 COVID-19; J96.01 Acute respiratory failure with hypoxia; G47.30 Sleep apnea, unspecified; Z79.899 Other long term (current) drug therapy; J12.82 Pneumonia due to coronavirus disease 2019; F41.9 Anxiety disorder, unspecified; R60.0 Localized edema; E78.5 Hyperlipidemia, unspecified